=== PATIENT | female | born 1940 | race Caucasian/White ===

== ENCOUNTER 2018-09-01 00:42 | Inpatient (IN) ==
[2018-09-01] MEDS ORDERED: Acetaminophen 325 MG TABLET PO ONE (01:22)
--- NOTE | 2018-09-01 02:04 | Emergency Department Note ---
Disposition Clinical Impression: Femoral distal fracture Qualifiers: Encounter type: initial encounter Fracture type: closed Fracture morphology: unspecified fracture morphology Laterality: left Qualified Code(s): S72.402A - Unspecified fracture of lower end of left femur, initial encounter for closed fracture Fall Qualifiers: Encounter type: initial encounter Qualified Code(s): W19.XXXA - Unspecified fall, initial encounter Disposition: Admitted As Inpatient Condition: Undetermined Referrals: Deja Nettles EXECUTIVE DIRECTOR [employer] [Primary Care Provider] - Fall HPI - General Chief Complaint: ED Fall Stated Complaint: fall left leg pain Time Seen by Provider: 09/01/18 01:17 Source: patient, EMS Mode of arrival: EMS Limitations: no limitations Nursing Notes Reviewed: Yes Vital Signs Reviewed: Yes - History of Present Illness HPI Narrative: 78-year-old female presents emergency department for evaluation of left lower extremity pain after sustaining a mechanical fall just prior to arrival. Patient states history of bone cancer, she is currently on chemotherapeutic medications states she was ambulating in her foot caught on a rug, she fell landing on her left side. She complains of pain mostly in her left knee but she does have pain proximally and distally as well. She denies numbness, tingling, paresthesia. She states for range of motion at her baseline (which includes decreased strength and range of motion to this extremity). She denies hitting her head, she denies loss of consciousness. She states she is on a blood thinner Prodaxa due to blood clots in her left lower exterminate previously. She states she has had surgery and bone plates inserted into this leg. 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 From: standing Fall Witnessed: no Place Fall Occurred: home Loss of Consciousness: none Prolonged Down Time?: no Symptoms Prior to Fall: none Context: tripped/slipped Location of injury: other Severity: moderate Quality: crushing Associated symptoms (after fall): Reports: denies - Related Data Home Medications Medication Instructions Recorded Confirmed Carvedilol [Coreg] 6.25 mg PO BIDWM 02/26/15 08/23/18 Multivitamin [Multi-Day Vitamins] 1 each PO DAILY 02/26/15 08/23/18 Aspirin [Lo-Dose Aspirin EC] 81 mg PO DAILY 12/27/17 08/23/18 Losartan [Cozaar] 50 mg PO DAILY 01/06/18 08/23/18 Previous Rx's Medication Instructions Recorded Dabigatran Etexilate Mesylate 110 mg PO BID #180 capsule 05/16/18 [Pradaxa] Walker - Rollator [ROLLATOR] 1 each .ROUTE AD #1 each 05/31/18 Cyanocobalamin (Vitamin B-12) 1,000 mcg SL DAILY #30 tablet 06/29/18 [Vitamin B12] Cyanocobalamin (B-12) [Vitamin B12] 1,000 mcg IM QMONTH #12 vial 07/26/18 Palbociclib [Ibrance] 100 mg PO DAILY #21 capsule 08/07/18 Allergies Allergy/AdvReac Type Severity Reaction Status Date / Time Penicillins [PCN] Allergy Swelling Verified 08/23/18 13:00 of Lip/Tongue/Throat Sulfa (Sulfonamide Allergy Rash Verified 08/23/18 13:00 Antibiotics) All systems ED: reviewed and negative except as stated. 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 - Social History Smoking Status: Never smoker Alcohol use: Reports: none Drug use: Reports: none Physical Exam - General Limitations: no limitations General appearance: alert, in no apparent distress - Head Head exam: atraumatic, normocephalic, normal inspection - Eye Eye exam: Present: normal appearance - ENT ENT exam: mucous membranes moist - Neck Neck exam: Present: normal inspection, full ROM, trachea midline - Chest Chest inspection: Present: normal inspection, symmetric chest wall rise - Cardiovascular Cardiovascular exam: Present: regular rate, normal rhythm, normal heart sounds - Abdominal Exam Abdominal exam: Present: soft, Non-Tender. Absent: tenderness, distention, guarding, rebound, rigidity - Expanded Lower Extremity Exam Hip/Pelvis exam: Present: normal inspection. Absent: tenderness, swelling Upper leg exam: Present: normal inspection, tenderness (distal with palpation) Knee exam: Present: normal inspection, tenderness (with palpation) Lower leg exam: Present: normal inspection, tenderness (proximal with palpation) Ankle exam: Present: normal inspection, full ROM Foot/toe exam: Present: normal inspection, full ROM Neurovascular/Tendon exam: Present: normal capillary refill, normal 2-point discrimination. Absent: pulse deficit, sensory deficit Gait: not tested/not observed - Back Exam Back exam: Present: normal inspection, full ROM. Absent: tenderness, vertebral tenderness - Neurological Exam Neurological exam: Present: alert, oriented X3 - Psychiatric Psychiatric exam: Present: normal affect, normal mood - Skin Skin exam: Present: warm, dry, intact, normal color Course Course Narrative: Well-developed female in no acute distress. Respirations are easy and even. Patient is neurovascularly intact to bilateral lower extremities. She does have pain with palpation from the mid femur down through the mid tibia and fibula, shows a full range of motioned her ankle, feet, toes. She does have some range of motion though she states at baseline she does not have much. Patient states at home she only takes Aleve for pain, she states she only arrest take one in the morning and she does not have any pain afterwards. X-rays completed of the ankle, knee, foot reveal a comminuted displaced fracture of the distal femur, patient was unable to tolerate a hip x-ray due to pain. She did not have any pain with palpation of the hip, the pain is strictly from her knee. She is asking to not have x-rays of her hip she did not hit their she states she came down on her knee. Patient will require an orthopedic consult, and she will be nonambulatory and unable to care for herself at home. Erica should to fit most from being admitted to the hospital, I did discuss this with patient he was agreeable. We will assist with pain management, plan to admit to the hospital for management and orthopedic consult, we will obtain basic labs, given IV paged the hospitalist. - Reevaluation(s) Reevaluation #1: Except by hospitalist for admission to the hospital. We will consult orthopedics to see patient during normal rounding. Tuesday agreeable plan of care. We will transfer at this time. Vital Signs Temperature 98.6 F 09/01/18 00:58 Pulse Rate 65 09/01/18 00:58 Respiratory Rate 18 09/01/18 00:58 Blood Pressure 148/65 09/01/18 00:58 O2 Sat by Pulse Oximetry 96 09/01/18 00:58 Temperature 97.4 F L 09/01/18 04:34 Pulse Rate 70 09/01/18 04:34 Respiratory Rate 12 09/01/18 04:34 Blood Pressure 108/96 09/01/18 04:34 O2 Sat by Pulse Oximetry 95 09/01/18 04:34 Oxygen Delivery Oxygen Delivery Room Air Fall - Lab Data Result diagrams: 09/01/18 03:05 09/01/18 03:05 Lab Results 09/01/18 09/01/18 Range/Units 03:05 03:05 WBC 2.0 L (4.3-11.1) K/mcL RBC 2.39 L (3.82-4.97) M/mcL Hgb 9.1 L (11.5-15.4) g/dL Hct 26.5 L (35.3-44.9) % MCV 110.9 H (83.0-100.0) fL MCH 38.1 H (28.0-33.3) pg MCHC 34.3 (31.6-35.5) g/dL RDW 13.2 (11.5-14.5) % Plt Count 80 L (140-400) K/mcL MPV 11.2 (9.4-12.4) fL Immature Gran % 0.5 (0-4) % Seg Neutrophils % 69.4 % Lymphocytes % 22.6 % Monocytes % 6.5 % Eosinophils % 0.5 % Basophils % 0.5 % Neutrophils # 1.4 L (1.6-8.9) K/mcL Lymphocytes # 0.5 L (0.6-4.6) K/mcL Monocytes # 0.1 (0.0-1.3) K/mcL Eosinophils # 0.0 (0.0-0.6) K/mcL Basophils # 0.0 (0.0-0.2) K/mcL Platelet Estimate Decreased L (Normal) Sodium 139 (136-145) mEq/L Potassium 3.5 (3.5-5.1) mEq/L Chloride 105 (98-107) mEq/L Carbon Dioxide 25 (23-29) mEq/L BUN 18 (8-23) mg/dL Creatinine 0.70 (0.60-1.20) mg/dL Est GFR ( Amer) > 60 (> 60) Est GFR (Non-Af Amer) > 60 (> 60) BUN/Creatinine Ratio 26 (6-26) Glucose 112 H (70-105) mg/dL Calculated Osmolality 291 (280-300) Calcium 8.8 (8.6-10.3) mg/dL
[2018-09-01] MEDS ORDERED: *HR* OxyCODONE Immed Rel 5 MG TABLET PO ONE (02:13)
--- NOTE | 2018-09-01 03:18 | Emergency Department Note ---
Disposition Clinical Impression: Femoral distal fracture Qualifiers: Encounter type: initial encounter Fracture type: closed Fracture morphology: unspecified fracture morphology Laterality: left Qualified Code(s): S72.402A - Unspecified fracture of lower end of left femur, initial encounter for closed fracture Fall Qualifiers: Encounter type: initial encounter Qualified Code(s): W19.XXXA - Unspecified fall, initial encounter Disposition: Admitted As Inpatient Condition: Fair General Adult HPI - General Chief complaint: ED Fall Stated complaint: fall left leg pain Time Seen by Provider: 09/01/18 01:17 Source: patient, EMS Mode of arrival: EMS Limitations: no limitations Nursing Notes Reviewed: Yes Vital Signs Reviewed: Yes - History of Present Illness Pain Scale: 7 - Related Data Home Medications Medication Instructions Recorded Confirmed Carvedilol [Coreg] 6.25 mg PO BIDWM 02/26/15 09/01/18 Multivitamin [Multi-Day Vitamins] 1 each PO DAILY 02/26/15 09/01/18 Aspirin [Lo-Dose Aspirin EC] 81 mg PO DAILY 12/27/17 09/01/18 Losartan [Cozaar] 50 mg PO DAILY 01/06/18 09/01/18 Previous Rx's Medication Instructions Recorded Dabigatran Etexilate Mesylate 110 mg PO BID #180 capsule 05/16/18 [Pradaxa] Walker - Rollator [ROLLATOR] 1 each .ROUTE AD #1 each 05/31/18 Cyanocobalamin (Vitamin B-12) 1,000 mcg SL DAILY #30 tablet 06/29/18 [Vitamin B12] Cyanocobalamin (B-12) [Vitamin B12] 1,000 mcg IM QMONTH #12 vial 07/26/18 Palbociclib [Ibrance] 100 mg PO DAILY #21 capsule 08/07/18 Allergies Allergy/AdvReac Type Severity Reaction Status Date / Time Penicillins [PCN] Allergy Swelling Verified 08/23/18 13:00 of Lip/Tongue/Throat Sulfa (Sulfonamide Allergy Rash Verified 08/23/18 13:00 Antibiotics) Past Medical History - Past Medical History Medical history: Reports: cancer, hyperlipidemia, hypertension, other Surgical history: Reports: appendectomy, breast surgery, cholecystectomy Psychiatric history: Reports: no psych history 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 history - Social History Smoking Status: Never smoker Smokeless Tobacco Status: No Alcohol use: Reports: none Drug use: Reports: none Physical Exam - General Limitations: no limitations General appearance: alert, in no apparent distress Course Vital Signs Temperature 98.6 F 09/01/18 00:58 Pulse Rate 65 09/01/18 00:58 Respiratory Rate 18 09/01/18 00:58 Blood Pressure 148/65 09/01/18 00:58 O2 Sat by Pulse Oximetry 96 09/01/18 00:58 Temperature 98.1 F 09/01/18 05:26 Pulse Rate 69 09/01/18 05:26 Respiratory Rate 16 09/01/18 05:26 Blood Pressure 152/73 09/01/18 05:26 O2 Sat by Pulse Oximetry 92 09/01/18 06:12 Oxygen Delivery Oxygen Delivery Room Air Medical Decision Making - Lab Data Lab results reviewed: Yes I reviewed the patient's lab results. Result diagrams: 09/01/18 03:05 09/01/18 03:05 Lab Results 09/01/18 09/01/18 09/01/18 Range/Units 03:05 03:05 03:09 WBC 2.0 L (4.3-11.1) K/mcL RBC 2.39 L (3.82-4.97) M/mcL Hgb 9.1 L (11.5-15.4) g/dL Hct 26.5 L (35.3-44.9) % MCV 110.9 H (83.0-100.0) fL MCH 38.1 H (28.0-33.3) pg MCHC 34.3 (31.6-35.5) g/dL RDW 13.2 (11.5-14.5) % Plt Count 80 L (140-400) K/mcL MPV 11.2 (9.4-12.4) fL Immature Gran % 0.5 (0-4) % Seg Neutrophils % 69.4 % Lymphocytes % 22.6 % Monocytes % 6.5 % Eosinophils % 0.5 % Basophils % 0.5 % Neutrophils # 1.4 L (1.6-8.9) K/mcL Lymphocytes # 0.5 L (0.6-4.6) K/mcL Monocytes # 0.1 (0.0-1.3) K/mcL Eosinophils # 0.0 (0.0-0.6) K/mcL Basophils # 0.0 (0.0-0.2) K/mcL Platelet Estimate Decreased L (Normal) PT 12.6 H (9.4-12.1) Seconds INR 1.1 APTT 134.3 H* (26.0-36.0) Seconds Heparin Anti-Xa, Unfract 0.50 (0.30-0.70) IU/mL Sodium 139 (136-145) mEq/L Potassium 3.5 (3.5-5.1) mEq/L Chloride 105 (98-107) mEq/L Carbon Dioxide 25 (23-29) mEq/L BUN 18 (8-23) mg/dL Creatinine 0.70 (0.60-1.20) mg/dL Est GFR ( Amer) > 60 (> 60) Est GFR (Non-Af Amer) > 60 (> 60) BUN/Creatinine Ratio 26 (6-26) Glucose 112 H (70-105) mg/dL Calculated Osmolality 291 (280-300) Calcium 8.8 (8.6-10.3) mg/dL - Radiology Data Radiology results reviewed: Yes I reviewed the patient's radiology results. Ankle X-Ray 09/01/18 01:21 IMPRESSION: Diffuse soft tissue swelling. No definite acute fracture is seen. D/ / Maya Starr MD / Maya Starr MD Interpreting Provider: Maya Starr MD Foot X-Ray 09/01/18 01:21 IMPRESSION: Bones are demineralized. No acute osseous abnormality. Diffuse soft tissue swelling. D/ / Maya Starr MD / Maya Starr MD Interpreting Provider: Maya Starr MD Knee X-Ray 09/01/18 01:21 IMPRESSION: Comminuted displaced fracture involving the left distal femoral metadiaphysis with adjacent soft tissue swelling. D/ / Maya Starr MD / Maya Starr MD Interpreting Provider: Maya Starr MD Attestation Statement - Attestation Attestation: I, Ananth Sarmiento MD, personally evaluated this patient and discussed their management with the midlevel provicer, PAC/NETWORK CABLER. I reviewed the midlevel provider's note and agree with the documented findings, medical decision making, and plan of care. 78-year-old female presents to the emergency department by EMS with a complaint that she tripped on her rug and fell landing on her left knee and her left hand. She complains of severe pain just above the left knee. She denies hitting her head. No other pain or injury. She did not get dizzy or pass out. On examination patient is a well-developed obese elderly female in no acute distress. She is alert and oriented 3. There is no cyanosis or diaphoresis. Breath sounds are clear and equal bilaterally. Heart regular rate and rhythm. Abdomen soft and nontender with normal bowel sounds. There is swelling and tenderness of the distal left thigh. Range of motion not tested. Neurovascular function intact distally. X-ray shows a comminuted fracture of the distal left femur. Labs reviewed. The hospitalist, Dr. Shah, was consulted and accepted admission of the patient.
[2018-09-01 03:20] LABS: Basophils % 0.5 %; Mean Corpuscular Hemoglobin 38.1 pg (28.0-33.3)
[2018-09-01 03:22] LABS: Eosinophils % 0.5 %; Hematocrit 26.5 % (35.3-44.9); Hemoglobin 9.1 g/dL (11.5-15.4); Immature Granulocytes % 0.5 % (0-4); Lymphocytes # 0.5 K/mcL (0.6-4.6); Lymphocytes % 22.6 %; Mean Corpuscular HGB Conc 34.3 g/dL (31.6-35.5); Mean Corpuscular Volume 110.9 fL (83.0-100.0); Mean Platelet Volume 11.2 fL (9.4-12.4); Monocytes # 0.1 K/mcL (0.0-1.3); Monocytes % 6.5 %; Neutrophils # 1.4 K/mcL (1.6-8.9); Red Blood Count 2.39 M/mcL (3.82-4.97); Red Cell Distribution Width 13.2 % (11.5-14.5); Segmented Neutrophils % 69.4 %
[2018-09-01 03:23] LABS: Platelet Count 80 K/mcL (140-400)
[2018-09-01 03:38] LABS: BUN/Creatinine Ratio 26 (6-26); Blood Urea Nitrogen 18 mg/dL (8-23); Calcium 8.8 mg/dL (8.6-10.3); Carbon Dioxide 25 mEq/L (23-29); Chloride 105 mEq/L (98-107); Glucose 112 mg/dL (70-105); Osmolality,Calculated 291 (280-300); Potassium 3.5 mEq/L (3.5-5.1); Sodium 139 mEq/L (136-145); eGFR For Non-African Americans > 60 (> 60)
[2018-09-01 03:53] LABS: Platelet Estimate Decreased (Normal)
--- NOTE | 2018-09-01 04:30 | Internal Med History&Physical ---
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 He came into the emergency room for evaluation of left lower extremity pain that commenced after sustaining a mechanical fall prior to arrival describing it as her foot being caught on a rug than landing on her left side. She complained of pain mostly her left knee but also approximately and distally to this. She denied any numbness, tingling or paresthesias. Her range of motion was rep ortedly a baseline although it is decreased. No head trauma or loss of consciousness reported. She did state that she takes an anticoagulant due to blood clots in her left leg previously and has had surgery and bone plates inserted in the past. On exam she was found to be neurovascularly intact but in notable pain on palpation from the mid femur down to the mid tibia/fibula x-ray done revealed comminuted displaced fracture of the distal femur. She was given analgesics and is admitted for further care. Past Med Surg Social Fam HX - Past Medical History Medical history: cancer, hyperlipidemia, hypertension, other Additional medical history: DVT Psychiatric history: no psych history - Past Surgical History Surgical History: appendectomy, breast surgery, cholecystectomy Additional surgical history: 11/01/17 cervical 4-5 discectomy. anterior cervical w/fusion with cervical six corpectomy. lumpectomy left breast - Social History Smoking Status: Never smoker Smokeless Tobacco Status: No Alcohol use: none Drug use: none Internal Medicine - H&P: Meds Carvedilol [Coreg] 6.25 mg PO BIDWM 02/26/15 [History] Multivitamin [Multi-Day Vitamins] 1 each PO DAILY 02/26/15 [History] Aspirin [Lo-Dose Aspirin EC] 81 mg PO DAILY 12/27/17 [History] Losartan [Cozaar] 50 mg PO DAILY 01/06/18 [History] Dabigatran Etexilate Mesylate [Pradaxa] 110 mg PO BID #180 capsule 05/16/18 [Rx] Walker - Rollator [ROLLATOR] 1 each .ROUTE AD #1 each 05/31/18 [Rx] Cyanocobalamin (Vitamin B-12) [Vitamin B12] 1,000 mcg SL DAILY #30 tablet 06/29/18 [Rx] Cyanocobalamin (B-12) [Vitamin B12] 1,000 mcg IM QMONTH #12 vial 07/26/18 [Rx] Palbociclib [Ibrance] 100 mg PO DAILY #21 capsule 08/07/18 [Rx] Allergy/AdvReac Type Severity Reaction Status Date / Time Penicillins [PCN] Allergy Swelling Verified 08/23/18 13:00 of Lip/Tongue/Throat Sulfa (Sulfonamide Allergy Rash Verified 08/23/18 13:00 Antibiotics) All Systems PM: A 10-system review of systems was performed and is negative for pertinent findings except as documented above in the HPI. Family history reviewed and found non-contributory. - Constitutional Vitals: Temp Pulse Resp BP Pulse Ox 98.6 F 65 18 148/65 96 09/01/18 00:58 09/01/18 00:58 09/01/18 00:58 09/01/18 00:58 09/01/18 00:58 Exam: Vitals: Reviewed General: All developed white female lying comfortably in bed in no acute distress. Involuntary head shaking movements. Skin: Pale, warm and supple. HEENT: Moist mucous membranes. + conjunctivae pallor. Neck: Chemo port noted in right jugular. Chest: Normal thoracic expansion. Normal breath sounds. Clear to auscultation. Heart: Normal S1 & S2; rhythmic. No rubs or murmurs. Abdomen: Non-distended, soft and non-tender to palpation. No peritoneal reaction. Extremities: Mildly edematous. Left leg external rotation and shortening noted. Left suprapatellar ecchymosis with swelling and pain to touch. Warm distal extremities with palpable pulses. Able to wiggle her foot. Neurological: Awake, alert and oriented to person, place and time. No focal deficits. Psych: Affect appropriate. Internal Med - H&P Results - Labs CBC & Chem 7: 09/01/18 03:05 09/01/18 03:05 Labs: Short CBC 09/01/18 Range/Units 03:05 WBC 2.0 L (4.3-11.1) K/mcL Hgb 9.1 L (11.5-15.4) g/dL Hct 26.5 L (35.3-44.9) % Plt Count 80 L (140-400) K/mcL Neutrophils # 1.4 L (1.6-8.9) K/mcL BMP 09/01/18 03:05 Sodium 139 Potassium 3.5 Chloride 105 Carbon Dioxide 25 BUN 18 Creatinine 0.70 Glucose 112 H Calcium 8.8 - Impressions ITS Impressions Ankle X-Ray 09/01/18 01:21 IMPRESSION: Diffuse soft tissue swelling. No definite acute fracture is seen. D/ / Maya Starr MD / Maya Starr MD Interpreting Provider: Maya Starr MD Foot X-Ray 09/01/18 01:21 IMPRESSION: Bones are demineralized. No acute osseous abnormality. Diffuse soft tissue swelling. D/ / Maya Starr MD / Maya Starr MD Interpreting Provider: Maya Starr MD Knee X-Ray 09/01/18 01:21 IMPRESSION: Comminuted displaced fracture involving the left distal femoral metadiaphysis with adjacent soft tissue swelling. D/ / Maya Starr MD / Maya Starr MD Interpreting Provider: Maya Starr MD - Assessment and Plan (1) Closed fracture of left distal femur Current Visit: Yes Status: Acute Assessment and plan: Appears to be a pathologic fracture based on her history of severely debilitated bones from metastatic disease. Will consult orthopedics for evaluation. In the interim will keep NPO, obtain EKG and echo (since she has been on chemotherapeutic agents) for assessment . She has already undergone previous orthopedic surgeries without complications. She is self-ambulatory exceeding 4 METs capacity. No history of ischemic heart disease, congestive heart failure, cerebrovascular disease, preoperative insulin requirement or preoperative kidney disease placing her RCRI score at 0, class I risk for an intermediate risk surgical procedure. Qualifiers: Encounter type: initial encounter Fracture morphology: unspecified fracture morphology Qualified Code(s): S72.402A - Unspecified fracture of lower end of left femur, initial encounter for closed fracture (2) Breast cancer metastasized to bone Current Visit: Yes Status: Acute Assessment and plan: Will continue to follow with medical and radiation oncology as an outpatient. Qualifiers: Laterality: left Qualified Code(s): C50.912 - Malignant neoplasm of unspecified site of left female breast; C79.51 - Secondary malignant neoplasm of bone (3) Pancytopenia due to antineoplastic chemotherapy Current Visit: Yes Status: Acute Assessment and plan: Will continue to monitor trend and observe for bleeding. Seems stable and at baseline for now however. 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 Will keep on SubQ heparin in the interim for prophylaxis. Qualifiers: Chronicity: chronic Qualified Code(s): I82.532 - Chronic embolism and thrombosis of left popliteal vein - Time Spent With Patient Total time spent is greater than 50% in coordination of care (as documented) at patient's floor/unit and/or counseling patient: Greater than 35 minutes
[2018-09-01] MEDS ORDERED: Naloxone 0.4 MG/ML INJ IVP PRN (04:35)
[2018-09-01 05:21] LABS: Heparin anti-factor XA UFH 0.5 IU/mL (0.30-0.70); INR 1.1; Prothrombin Time 12.6 Seconds (9.4-12.1)
[2018-09-01 05:46] LABS: Activated Partial Thrombo Time 134.3 Seconds (26.0-36.0)
[2018-09-01] MEDS: OXYCODONE Oral CONC 10 MG/0.5 ML ORAL.SYG SL PRN ×3 (05:54→23:27)
[2018-09-01] MEDS: Ketorolac 30 MG/ML VIAL IVP PRN (09:35)
[2018-09-01] MEDS: Multivit/Ca/Min/Fe/FA 1 TAB TABLET PO SCH (09:36)
[2018-09-01] MEDS: Aspirin Enteric Coated 81 MG Tablet PO SCH (09:36)
--- NOTE | 2018-09-01 11:15 | Orthopedic Consult Note ---
Date of Encounter: 09/02/18 Time of Encounter: 11:15 Assessment and Plan (1) Femoral distal fracture Current Visit: Yes Status: Acute I did have a long discussion with the patient regarding the diagnosis. She does have a comminuted distal femur fracture below a long stem total hip arthroplasty. She does have a history of breast cancer with a lytic lesion in the proximal tibia. There is suspicion of possible pathologic fracture by the radiologist however I do not see any lytic lesion in the femur. She was mostly unassisted ambulator before this fall. I did discuss the case with my partner Dr. Beach regarding definitive management which I anticipate to be open reduction and internal fixation to stabilize left distal femur to provide pain control. He is currently out of town but will be back on Tuesday. Patient wishes to remain at [facility] for definitive care. I have reviewed each of the pertinent components of this chart and any other per tinent medical component(s) including but not limited to pertinent application of the chief complaint, history of present illness, current medication, medical history, allergies, family history, medical history, surgical history, social history, review of systems, vital signs, and any other portion of the pertinent patient medical record directly or indirectly involved with this patient care that is pertinent based on my medical decision process. PETERSON Acevedo Qualifiers: Encounter type: initial encounter Fracture type: closed Fracture morphology: unspecified fracture morphology Laterality: left Qualified Code(s): S72.402A - Unspecified fracture of lower end of left femur, initial encounter for closed fracture History of Present Illness HPI: Ms. Sinha is a 78 year old female with a known history of metastatic breast carcinoma. She is an unassisted ambulator mostly but does use a cane and walker from time to time. She has a history of a long stem left total hip arthroplasty by Dr. Beach a few years ago. She sustained a fall that resulted in a distal femur fracture and was subsequently admitted to the hospitalist. A consult was placed orthopedics to assist in the evaluation and management of the patient. She complains of isolated sharp and achy pain localized to left distal femur region. This is worse with movement and use the left lower extremity and better with rest. She denies any headaches, neck pain, chest pain, abdominal pain, no lateral upper extremity pain, and right lower extremity pain. She denies any numbness, tingling, or any other associated signs or symptoms or modifying fa ctors. Past Med Surg Social Fam HX - Past Medical History Medical history: cancer, hyperlipidemia, hypertension, other Additional medical history: DVT Psychiatric history: no psych history - Past Surgical History Surgical History: appendectomy, breast surgery, cholecystectomy Additional surgical history: 11/01/17 cervical 4-5 discectomy. anterior cervical w/fusion with cervical six corpectomy. lumpectomy left breast - Social History Smoking Status: Never smoker Smokeless Tobacco Status: No Alcohol use: none Drug use: none Medications and Allergies Carvedilol [Coreg] 6.25 mg PO BIDWM 02/26/15 [History] Multivitamin [Multi-Day Vitamins] 1 each PO DAILY 02/26/15 [History] Aspirin [Lo-Dose Aspirin EC] 81 mg PO DAILY 12/27/17 [History] Losartan [Cozaar] 50 mg PO DAILY 01/06/18 [History] Dabigatran Etexilate Mesylate [Pradaxa] 110 mg PO BID #180 capsule 05/16/18 [Rx] Walker - Rollator [ROLLATOR] 1 each .ROUTE AD #1 each 05/31/18 [Rx] Cyanocobalamin (Vitamin B-12) [Vitamin B12] 1,000 mcg SL DAILY #30 tablet 06/29/18 [Rx] Cyanocobalamin (B-12) [Vitamin B12] 1,000 mcg IM QMONTH #12 vial 07/26/18 [Rx] Palbociclib [Ibrance] 100 mg PO DAILY #21 capsule 08/07/18 [Rx] Allergy/AdvReac Type Severity Reaction Status Date / Time Penicillins [PCN] Allergy Swelling Verified 08/23/18 13:00 of Lip/Tongue/Throat Sulfa (Sulfonamide Allergy Rash Verified 08/23/18 13:00 Antibiotics) All Systems Reviewed: Constitutional -The patient denies any fevers, chills, or feelings of illness Neurologic -The patient denies any numbness, tingling, or burning pains Physical Exam - Constitutional Vitals: Temp Pulse Resp BP Pulse Ox 98.3 F 70 14 101/60 94 09/01/18 07:13 09/01/18 07:13 09/01/18 07:13 09/01/18 07:13 09/01/18 07:13 Constitutional -Vitals reviewed -The patient is well developed and well nourished. -Mood is pleasant. -The patient is well groomed. Psychiatric -The patient is fully alert and oriented x 3. Respiratory: -Respiratory effort normal Abdomen: -Soft abdomen -Non tender -Non distended: Left upper extremity: -No deformities. The overlying skin is intact. No obvious signs of acute trauma. -No tenderness to palpation throughout. -No significant pain with passive motion of the shoulder, elbow, wrist, and fingers within the limits of the bed. -Able to make an "OK" sign, cross the index and long fingers, and extend the thumb. -Sensation grossly intact to light touch throughout the median, radial, and ulnar distributions. -Radial pulse is present; Fingers have good capillary refill. Right upper extremity: -No deformities. The overlying skin is intact. No obvious signs of acute trauma. -No tenderness to palpation throughout. -No significant pain with passive motion of the shoulder, elbow, wrist, and fingers within the limits of the bed. -Able to make an "OK" sign, cross the index and long fingers, and extend the thumb. -Sensation grossly intact to light touch throughout the median, radial, and ulnar distributions. -Radial pulse is present; Fingers have good capillary refill. Left lower extremity: -Swelling noted to the left distal thigh region with tenderness diffusely about the distal femur region. I did not range the knee given her known injury. No tenderness about the hip. -Able to dorsiflex and plantarflex the ankle and toes. -Sensation is grossly intact to light touch throughout the sural, saphenous, superficial peroneal, and deep peroneal distributions. -Toes have good capillary refill. Right lower extremity: -No deformities. The overlying skin is intact. No obvious signs of acute trauma. -No tenderness to palpation throughout. -No pain with passive motion of the hip, knee, ankle, and toes within the limits of the bed. -No pain with axial loading of the thigh. -Able to dorsiflex and plantarflex the ankle and toes. -Sensation is grossly intact to light touch throughout the sural, saphenous, superficial peroneal, and deep peroneal distributions. -Toes have good capillary refill. Diagnostic Imaging: I did personally review and interpret x-rays of the left hip and knee as well as the CT scan of the knee were evaluated. Intact left hip implant. Comminuted distal femur fracture with what appears to be an intra-articular split between the condyles. There is a lytic lesion at the proximal tibia. Results - Labs Result Diagrams: 09/02/18 08:02 09/02/18 06:45 Labs: Abnormal lab results WBC 2.0 K/mcL (4.3-11.1) L 09/01/18 03:05 RBC 2.39 M/mcL (3.82-4.97) L 09/01/18 03:05 Hgb 9.1 g/dL (11.5-15.4) L 09/01/18 03:05 Hct 26.5 % (35.3-44.9) L 09/01/18 03:05 MCV 110.9 fL (83.0-100.0) H 09/01/18 03:05 MCH 38.1 pg (28.0-33.3) H 09/01/18 03:05 Plt Count 80 K/mcL (140-400) L 09/01/18 03:05 Neutrophils # 1.4 K/mcL (1.6-8.9) L 09/01/18 03:05 Lymphocytes # 0.5 K/mcL (0.6-4.6) L 09/01/18 03:05 Platelet Estimate Decreased (Normal) L 09/01/18 03:05 PT 12.6 Seconds (9.4-12.1) H 09/01/18 03:09 APTT 134.3 Seconds (26.0-36.0) H* 09/01/18 03:09 Glucose 112 mg/dL (70-105) H 09/01/18 03:05 H & H 09/01/18 Range/Units 03:05 Hgb 9.1 L (11.5-15.4) g/dL Hct 26.5 L (35.3-44.9) % All other labs normal. Consult Discharge Plan - Plan Referrals: Deja Nettles, BACK TENDER [Primary Care Provider] -
[2018-09-01] MEDS: *HR* Heparin 5,000 UNIT/ML VIAL SQ SCH ×3 (12:49→23:27)
--- NOTE | 2018-09-01 15:41 | Internal Med Progress Note ---
<Jose D Cartagena - Last Filed: 09/01/18 15:39> Hospitalist Progress Note - Encounter Date of Encounter: 09/01/18 Time of Encounter: 11:00 - Subjective Interval History: Spoke with Dr. Gruber this morning, patient's complicated fracture pattern require specific intervention normally offered by Dr. Beach who is out of town. The patient was consultation who stated that she would like to remain here to wait for Dr. Beach to perform the procedure as opposed to being transferred to a trauma center. I discussed that with the patient who confirmed that decision. The risks of postponing the procedure including pain, increased soft tissue damage, thrombotic event were all explained to the patient who stated that she understood. She complains of moderate left lower extremity pain this morning but otherwise has no acute complaints. - Exam Vitals: Temp Pulse Resp BP Pulse Ox 98.8 F 65 12 103/62 92 09/01/18 11:48 09/01/18 11:48 09/01/18 11:48 09/01/18 11:48 09/01/18 11:48 Exam: Vitals: Reviewed General: Well developed white female lying comfortably in bed in no acute distress. Skin: Pale, warm and supple. HEENT: Moist mucous membranes. + conjunctivae pallor. Neck: Chemo port noted in right jugular. Chest: Normal thoracic expansion. Normal breath sounds. Clear to auscultation. Heart: Normal S1 & S2; rhythmic. No rubs or murmurs. Abdomen: Non-distended, soft and non-tender to palpation. No peritoneal reaction. Extremities: Markedly edematous and ecchymotic left knee. There is observable physical deformity to the left distal femur proximal to the knee. Strength and range of motion around the knee joint were not tested however the patient was able to move her foot and wiggle her toes and confirmed intact sensation in the distal extremity. Neurological: Awake, alert and oriented to person, place and time. No focal deficits. Psych: Affect appropriate. - Assessment and Plan (1) Closed fracture of left distal femur Current Visit: Yes Status: Acute Assessment and Plan: Patient presented for left lower extremity pain after a mechanical fall Imaging revealed a severely comminuted distal left femur fracture She does have a history of pathologic fractures secondary to bony metastases from primary breast cancer Orthopedics was consulted who reported that Dr. Beach primarily handles complicated fractures of this nature and he is currently out of town This was discussed with the patient who decided she would like to remain here and wait for Dr. Beach, he has operated on her in the past The patient was determined to be hemodynamically and neurovascularly stable to postpone the procedure The patient reports over 4 Mets of functional ability prior to injury, EKG without acute dynamic changes, echocardiogram demonstrates preserved EF plan Scheduled oxycodone for pain control, subcutaneous heparin for DVT prophylaxis, home Dabigatran held due to bleeding risk Further recommendations per orthopedics, appreciate recommendations and consultation (2) Breast cancer metastasized to bone Current Visit: Yes Status: Acute Assessment and Plan: Will continue to follow with medical and radiation oncology as an outpatient. (3) Pancytopenia due to antineoplastic chemotherapy Current Visit: Yes Status: Acute Assessment and Plan: Will continue to monitor trend and observe for bleeding. Seems stable and at baseline for now however. (4) Deep vein thrombosis (DVT) of popliteal vein of left lower extremity Current Visit: Yes Status: Chronic Assessment and Plan: History of previous DVT, on Dabigatran at home Will hold current oral anticoagulant therapy in case surgery is planned. Will keep on SubQ heparin in the interim for prophylaxis. - Time Spent with Patient Total time spent is greater than 50% in coordination of care (as documented) at patient's floor/unit and/or counseling patient: Internal Medicine: Result - Labs CBC & Chem 7: 09/01/18 03:05 09/01/18 03:05 Labs: Short CBC 09/01/18 Range/Units 03:05 WBC 2.0 L (4.3-11.1) K/mcL Hgb 9.1 L (11.5-15.4) g/dL Hct 26.5 L (35.3-44.9) % Plt Count 80 L (140-400) K/mcL Neutrophils # 1.4 L (1.6-8.9) K/mcL BMP 09/01/18 03:05 Sodium 139 Potassium 3.5 Chloride 105 Carbon Dioxide 25 BUN 18 Creatinine 0.70 Glucose 112 H Calcium 8.8 - ABG Interpretation ABG results: PT/INR, D-dimer PT 12.6 Seconds (9.4-12.1) H 09/01/18 03:09 - Impressions Impressions Ankle X-Ray 09/01/18 01:21 IMPRESSION: Diffuse soft tissue swelling. No definite acute fracture is seen. D/ / Maya Starr MD / Maya Starr MD Interpreting Provider: Maya Starr MD Foot X-Ray 09/01/18 01:21 IMPRESSION: Bones are demineralized. No acute osseous abnormality. Diffuse soft tissue swelling. D/ / Maya Starr MD / Maya Starr MD Interpreting Provider: Maya Starr MD Knee X-Ray 09/01/18 01:21 IMPRESSION: Comminuted displaced fracture involving the left distal femoral metadiaphysis with adjacent soft tissue swelling. D/ / Maya Starr MD / Maya Starr MD Interpreting Provider: Maya Starr MD Echocardiogram 09/01/18 04:34 Impressions: LVEF 50%. Normal LV chamber size, wall thickness. Atypical septal motion consistent with bundle branch block. Mild global left ventricular systolic dysfunction. Mild left ventricular diastolic dysfunction. Normal right ventricular structure and function. Mild tricuspid regurgitation. No pulmonary hypertension. Left Ventricular Wall Motion: Rest Echo Findings All wall segments showed normal motion. Findings: Study Quality * Technically sub-optimal due to poor echocardiographic windows. ECG Findings * Sinus rhythm with BBB. Left Ventricle * LVEF 50%. * Normal LV chamber size, wall thickness. * Atypical septal motion consistent with bundle branch block. * Mild left ventricular diastolic dysfunction. Right Ventricle * Normal right ventricular structure and function. Left Atrium * Mildly dilated left atrium. Right Atrium * Normal right atrial size. Aortic Valve * Trileaflet aortic valve. * Mildly calcified aortic valve leaflets. * No aortic stenosis. * No aortic regurgitation. Mitral Valve * Mild mitral annular calcification * No mitral regurgitation. * No mitral stenosis. Tricuspid Valve * Normal tricuspid valve structure. * Mild tricuspid regurgitation. * No pulmonary hypertension. Pulmonic Valve * Normal pulmonic valve structure and function. * No pulmonic regurgitation. Aorta * Normally sized aortic root. Pericardium * The pericardium appears normal. IVC * The IVC is not well evaluated. Pulmonary Artery * Normal visualized portions of the main pulmonary artery. Femur X-Ray 09/01/18 10:08 IMPRESSION: 1. Comminuted, displaced fracture of the distal femoral metadiaphysis. 2. Inferior displacement of the patella with questionable superior patellar fracture. 3. Status post left hip arthroplasty. No hardware complication. D/ / 09/01/2018 12:51:50 Frida Ontiveros MD / delgado Interpreting Provider: Frida Ontiveros MD Knee CT 09/01/18 10:09 IMPRESSION: 1. Comminuted distal femur fracture with extension to the intercondylar notch. Likely a pathologic fracture with suspected underlying lytic metastasis. 2. There is a 16 mm lytic lesion in the medial tibial metaphysis concerning for metastatic disease. 3. Fractured 7 mm osteophyte from the superior pole of the patella. D/ / 09/01/2018 12:11:43 Ze Cantu MD / delgado Interpreting Provider: Ze Cantu MD Consult Discharge Plan - Plan Referrals: Deja Nettles, SCORER HELPER [Primary Care Provider] - <King Olivier - Last Filed: 09/01/18 17:56> Hospitalist Progress Note - Encounter Date of Encounter: 09/01/18 - Exam Vitals: Temp Pulse Resp BP Pulse Ox 98.3 F 73 16 88/56 90 09/01/18 16:00 09/01/18 16:00 09/01/18 16:00 09/01/18 16:00 09/01/18 16:00 - Assessment and Plan (1) Breast cancer metastasized to bone Current Visit: Yes Status: Acute (2) Pancytopenia due to antineoplastic chemotherapy Current Visit: Yes Status: Acute (3) Closed fracture of left distal femur Current Visit: Yes Status: Acute (4) Deep vein thrombosis (DVT) of popliteal vein of left lower extremity Current Visit: Yes Status: Chronic - Time Spent with Patient Total time spent is greater than 50% in coordination of care (as documented) at patient's floor/unit and/or counseling patient: Internal Medicine: Result - Labs CBC & Chem 7: 09/01/18 03:05 09/01/18 03:05 Labs: Short CBC 09/01/18 Range/Units 03:05 WBC 2.0 L (4.3-11.1) K/mcL Hgb 9.1 L (11.5-15.4) g/dL Hct 26.5 L (35.3-44.9) % Plt Count 80 L (140-400) K/mcL Neutrophils # 1.4 L (1.6-8.9) K/mcL BMP 09/01/18 03:05 Sodium 139 Potassium 3.5 Chloride 105 Carbon Dioxide 25 BUN 18 Creatinine 0.70 Glucose 112 H Calcium 8.8 - ABG Interpretation ABG results: PT/INR, D-dimer PT 12.6 Seconds (9.4-12.1) H 09/01/18 03:09 - Impressions Impressions Ankle X-Ray 09/01/18 01:21 IMPRESSION: Diffuse soft tissue swelling. No definite acute fracture is seen. D/ / Maya Starr MD / Maya Starr MD Interpreting Provider: Maya Starr MD Foot X-Ray 09/01/18 01:21 IMPRESSION: Bones are demineralized. No acute osseous abnormality. Diffuse soft tissue swelling. D/ / Maya Starr MD / Maya Starr MD Interpreting Provider: Maya Starr MD Knee X-Ray 09/01/18 01:21 IMPRESSION: Comminuted displaced fracture involving the left distal femoral metadiaphysis with adjacent soft tissue swelling. D/ / Maya Starr MD / Maya Starr MD Interpreting Provider: Maya Starr MD Echocardiogram 09/01/18 04:34 Impressions: LVEF 50%. Normal LV chamber size, wall thickness. Atypical septal motion consistent with bundle branch block. Mild global left ventricular systolic dysfunction. Mild left ventricular diastolic dysfunction. Normal right ventricular structure and function. Mild tricuspid regurgitation. No pulmonary hypertension. Left Ventricular Wall Motion: Rest Echo Findings All wall segments showed normal motion. Findings: Study Quality * Technically sub-optimal due to poor echocardiographic windows. ECG Findings * Sinus rhythm with BBB. Left Ventricle * LVEF 50%. * Normal LV chamber size, wall thickness. * Atypical septal motion consistent with bundle branch block. * Mild left ventricular diastolic dysfunction. Right Ventricle * Normal right ventricular structure and function. Left Atrium * Mildly dilated left atrium. Right Atrium * Normal right atrial size. Aortic Valve * Trileaflet aortic valve. * Mildly calcified aortic valve leaflets. * No aortic stenosis. * No aortic regurgitation. Mitral Valve * Mild mitral annular calcification * No mitral regurgitation. * No mitral stenosis. Tricuspid Valve * Normal tricuspid valve structure. * Mild tricuspid regurgitation. * No pulmonary hypertension. Pulmonic Valve * Normal pulmonic valve structure and function. * No pulmonic regurgitation. Aorta * Normally sized aortic root. Pericardium * The pericardium appears normal. IVC * The IVC is not well evaluated. Pulmonary Artery * Normal visualized portions of the main pulmonary artery. Femur X-Ray 09/01/18 10:08 IMPRESSION: 1. Comminuted, displaced fracture of the distal femoral metadiaphysis. 2. Inferior displacement of the patella with questionable superior patellar fracture. 3. Status post left hip arthroplasty. No hardware complication. D/ / 09/01/2018 12:51:50 Frida Ontiveros MD / delgado Interpreting Provider: Frida Ontiveros MD Knee CT 09/01/18 10:09 IMPRESSION: 1. Comminuted distal femur fracture with extension to the intercondylar notch. Likely a pathologic fracture with suspected underlying lytic metastasis. 2. There is a 16 mm lytic lesion in the medial tibial metaphysis concerning for metastatic disease. 3. Fractured 7 mm osteophyte from the superior pole of the patella. D/ / 09/01/2018 12:11:43 Ze Cantu MD / delgado Interpreting Provider: Ze Cantu MD - Attending Attestation I examined this patient and my medical decision-making was reviewed with the Resident Physician. I agree with the documented findings, disposition and tr eatment plan as described except to the extent set forth below. <Jose D Cartagena - Last Filed: 09/01/18 15:39> (1) Closed fracture of left distal femur Qualifiers: Encounter type: initial encounter Fracture morphology: unspecified fracture morphology Qualified Code(s): S72.402A - Unspecified fracture of lower end of left femur, initial encounter for closed fracture (2) Breast cancer metastasized to bone Qualifiers: Laterality: left Qualified Code(s): C50.912 - Malignant neoplasm of unspecified site of left female breast; C79.51 - Secondary malignant neoplasm of bone (4) Deep vein thrombosis (DVT) of popliteal vein of left lower extremity Qualifiers: Chronicity: chronic Qualified Code(s): I82.532 - Chronic embolism and thrombosis of left popliteal vein <King Olivier - Last Filed: 09/01/18 17:56> (1) Breast cancer metastasized to bone Qualifiers: Laterality: left Qualified Code(s): C50.912 - Malignant neoplasm of unspecified site of left female breast; C79.51 - Secondary malignant neoplasm of bone (3) Closed fracture of left distal femur Qualifiers: Encounter type: initial encounter Fracture morphology: unspecified fracture morphology Qualified Code(s): S72.402A - Unspecified fracture of lower end of left femur, initial encounter for closed fracture (4) Deep vein thrombosis (DVT) of popliteal vein of left lower extremity Qualifiers: Chronicity: chronic Qualified Code(s): I82.532 - Chronic embolism and th rombosis of left popliteal vein
[2018-09-01] MEDS ORDERED: 0.9 % Sodium Chloride 500 ML IVC ONE (16:05)
--- NOTE | 2018-09-02 03:33 | Electrocardiograph Report ---
[address] [place] [address] Test Date: 2018-09-01 Pat Name: Monisha Sinha Department: 114 Room: [facility] Gender: F Pill Packer: KHUSHI : [id number] Requested By: Fabiano Shah Order Number: [id number] Reading MD: Bertrand Chung Measurements Intervals [place] Rate: 69 P: -1 ID: [id number] QRS: -53 QRSD: 117 T: 18 QT: 417 QTc: 437 Interpretive Statements SINUS RHYTHM MARKED LEFT AXIS DEVIATION LOW QRS VOLTAGE IN PRECORDIAL LEADS ANTERIOR MYOCARDIAL INFARCTION, PROBABLY OLD INFERIOR MYOCARDIAL INFAARCTION, PROBABLY OLD Electronically Signed On 09-02-2018 3:31:42 EDT by Bertrand Chung
[2018-09-02 07:20] LABS: BUN/Creatinine Ratio 27 (6-26); Blood Urea Nitrogen 22 mg/dL (8-23); Calcium 8.2 mg/dL (8.6-10.3); Carbon Dioxide 27 mEq/L (23-29); Chloride 104 mEq/L (98-107); Glucose 106 mg/dL (70-105); Osmolality,Calculated 288 (280-300); Potassium 3.8 mEq/L (3.5-5.1); Sodium 137 mEq/L (136-145); eGFR For Non-African Americans > 60 (> 60)
[2018-09-02] MEDS: OXYCODONE Oral CONC 10 MG/0.5 ML ORAL.SYG SL PRN ×2 (07:39→13:23)
--- NOTE | 2018-09-02 08:26 | Internal Med Progress Note ---
Hospitalist Progress Note - Encounter Date of Encounter: 09/02/18 Time of Encounter: 09:00 - Subjective Interval History: No complaints, states pain is controlled. - Exam Vitals: Temp Pulse Resp BP Pulse Ox 99.4 F 74 16 128/68 92 09/02/18 07:16 09/02/18 07:16 09/02/18 07:16 09/02/18 07:16 09/02/18 07:16 Exam: Vitals: Reviewed General: Well developed white female lying comfortably in bed in no acute distress. Skin: Pale, warm and supple. HEENT: Moist mucous membranes. + conjunctivae pallor. Neck: Chemo port noted in right jugular. Chest: Normal thoracic expansion. Normal breath sounds. Clear to auscultation. Heart: Normal S1 & S2; rhythmic. No rubs or murmurs. Abdomen: Non-distended, soft and non-tender to palpation. No peritoneal reaction. Extremities: Markedly edematous and ecchymotic left knee. There is observable physical deformity to the left distal femur proximal to the knee. Strength and range of motion around the knee joint were not tested however the patient was able to move her foot and wiggle her toes and confirmed intact sensation in the distal extremity. Neurological: Awake, alert and oriented to person, place and time. No focal deficits. Psych: Affect appropriate. - Assessment and Plan (1) Closed fracture of left distal femur Current Visit: Yes Status: Acute Assessment and Plan: Patient presented for left lower extremity pain after a mechanical fall Imaging revealed a severely comminuted distal left femur fracture She does have a history of pathologic fractures secondary to bony metastases from primary breast cancer Orthopedics was consulted who reported that Dr. Beach primarily handles complicated fractures of this nature and he is currently out of town This was discussed with the patient who decided she would like to remain here and wait for Dr. Beach, he has operated on her in the past The patient was determined to be hemodynamically and neurovascularly stable to postpone the procedure The patient reports over 4 Mets of functional ability prior to injury, EKG without acute dynamic changes, echocardiogram demonstrates preserved EF plan Scheduled oxycodone for pain control, subcutaneous heparin for DVT prophylaxis, home Dabigatran held due to bleeding risk Surgery in 2 days (2) Breast cancer metastasized to bone Current Visit: Yes Status: Acute Assessment and Plan: Will continue to follow with medical and radiation oncology as an outpatient. (3) Pancytopenia due to antineoplastic chemotherapy Current Visit: Yes Status: Acute Assessment and Plan: Will continue to monitor trend and observe for bleeding. Seems stable and at baseline for now however. CBC for today is pending. (4) Deep vein thrombosis (DVT) of popliteal vein of left lower extremity Current Visit: Yes Status: Chronic Assessment and Plan: History of previous DVT, on Dabigatran at home Will hold current oral anticoagulant therapy in case surgery is planned. Will keep on SubQ heparin in the interim for prophylaxis. - Time Spent with Patient Total time spent is greater than 50% in coordination of care (as documented) at patient's floor/unit and/or counseling patient: Internal Medicine: Result - Labs CBC & Chem 7: 09/02/18 08:02 09/02/18 06:45 Labs: BMP 09/02/18 06:45 Sodium 137 Potassium 3.8 Chloride 104 Carbon Dioxide 27 BUN 22 Creatinine 0.81 Glucose 106 H Calcium 8.2 L - ABG Interpretation ABG results: PT/INR, D-dimer PT 12.6 Seconds (9.4-12.1) H 09/01/18 03:09 - Impressions Impressions Echocardiogram 09/01/18 04:34 Impressions: LVEF 50%. Normal LV chamber size, wall thickness. Atypical septal motion consistent with bundle branch block. Mild global left ventricular systolic dysfunction. Mild left ventricular diastolic dysfunction. Normal right ventricular structure and function. Mild tricuspid regurgitation. No pulmonary hypertension. Left Ventricular Wall Motion: Rest Echo Findings All wall segments showed normal motion. Findings: Study Quality * Technically sub-optimal due to poor echocardiographic windows. ECG Findings * Sinus rhythm with BBB. Left Ventricle * LVEF 50%. * Normal LV chamber size, wall thickness. * Atypical septal motion consistent with bundle branch block. * Mild left ventricular diastolic dysfunction. Right Ventricle * Normal right ventricular structure and function. Left Atrium * Mildly dilated left atrium. Right Atrium * Normal right atrial size. Aortic Valve * Trileaflet aortic valve. * Mildly calcified aortic valve leaflets. * No aortic stenosis. * No aortic regurgitation. Mitral Valve * Mild mitral annular calcification * No mitral regurgitation. * No mitral stenosis. Tricuspid Valve * Normal tricuspid valve structure. * Mild tricuspid regurgitation. * No pulmonary hypertension. Pulmonic Valve * Normal pulmonic valve structure and function. * No pulmonic regurgitation. Aorta * Normally sized aortic root. Pericardium * The pericardium appears normal. IVC * The IVC is not well evaluated. Pulmonary Artery * Normal visualized portions of the main pulmonary artery. Femur X-Ray 09/01/18 10:08 IMPRESSION: 1. Comminuted, displaced fracture of the distal femoral metadiaphysis. 2. Inferior displacement of the patella with questionable superior patellar fracture. 3. Status post left hip arthroplasty. No hardware complication. D/ / 09/01/2018 12:51:50 Frida Ontiveros MD / delgado Interpreting Provider: Frida Ontiveros MD Knee CT 09/01/18 10:09 IMPRESSION: 1. Comminuted distal femur fracture with extension to the intercondylar notch. Likely a pathologic fracture with suspected underlying lytic metastasis. 2. There is a 16 mm lytic lesion in the medial tibial metaphysis concerning for metastatic disease. 3. Fractured 7 mm osteophyte from the superior pole of the patella. D/ / 09/01/2018 12:11:43 Ze Cantu MD / delgado Interpreting Provider: Ze Cantu MD Consult Discharge Plan - Plan Referrals: Deja Nettles, OIL DERRICK OPERATOR [Primary Care Provider] - (1) Closed fracture of left distal femur Qualifiers: Encounter type: initial encounter Fracture morphology: unspecified fracture morphology Qualified Code(s): S72.402A - Unspecified fracture of lower end of left femur, initial encounter for closed fracture (2) Breast cancer metastasized to bone Qualifiers: Laterality: left Qualified Code(s): C50.912 - Malignant neoplasm of unspecified site of left female breast; C79.51 - Secondary malignant neoplasm of bone (4) Deep vein thrombosis (DVT) of popliteal vein of left lower extremity Qualifiers: Chronicity: chronic Qualified Code(s): I82.532 - Chronic embolism and thrombosis of left popliteal vein
[2018-09-02 08:30] LABS: Hematocrit 19.9 % (35.3-44.9); Mean Corpuscular HGB Conc 34.2 g/dL (31.6-35.5); Mean Corpuscular Volume 111.2 fL (83.0-100.0); Mean Platelet Volume 11.5 fL (9.4-12.4); Red Blood Count 1.79 M/mcL (3.82-4.97); Red Cell Distribution Width 13.7 % (11.5-14.5)
[2018-09-02 08:36] LABS: Platelet Count 59 K/mcL (140-400)
[2018-09-02 08:41] LABS: Hemoglobin 6.8 g/dL (11.5-15.4)
[2018-09-02 08:57] LABS: Lymphocytes # 0.5 K/mcL (0.6-4.6); Monocytes # 0.1 K/mcL (0.0-1.3); Neutrophils # 1.3 K/mcL (1.6-8.9)
[2018-09-02] MEDS: Multivit/Ca/Min/Fe/FA 1 TAB TABLET PO SCH (10:06)
[2018-09-02] MEDS: Aspirin Enteric Coated 81 MG Tablet PO SCH (10:06)
--- NOTE | 2018-09-02 11:16 | Orthopedics Progress Note ---
Date of Encounter: 09/02/18 Time of Encounter: 11:14 - Assessment and Plan (1) Femoral distal fracture Current Visit: Yes Status: Acute Qualifiers: Encounter type: initial encounter Fracture type: closed Fracture morphology: unspecified fracture morphology Laterality: left Qualified Code(s): S72.402A - Unspecified fracture of lower end of left femur, initial encounter for closed fracture Subjective Interval history: S: Patient is seen today and has no complaints. Pain well-controlled to the left knee. O: Afebrile and vital signs are stable Swelling and tenderness as expected to the left knee area. Neurovascularly intact distally A: Left distal femur fracture below a long stem hip prosthesis P: Hemoglobin noted. Discussed with the hospitalist will transfuse today. Holding heparin. Anticipate reduction and fixation by Dr. Beach on Tuesday. Pillow splint and comfort measures until then. Objective Vital signs: Vital Signs Temp Pulse Resp BP Pulse Ox 09/02/18 07:16 99.4 F 74 16 128/68 92 09/02/18 04:08 99.0 F 75 16 116/68 92 09/01/18 23:42 98.6 F 65 17 110/66 93 09/01/18 18:45 97.9 F 63 16 111/70 96 09/01/18 18:02 96/61 09/01/18 16:00 98.3 F 73 16 88/56 90 09/01/18 15:45 98.3 F 73 13 90 09/01/18 11:48 98.8 F 65 12 103/62 92 Intake and Output 09/01/18 09/02/18 09/02/18 23:59 07:59 15:59 Intake Total 300 / 300 360 / 360 Output Total 400 / 400 Balance -100 / -100 360 / 360 Intake: Oral 300 / 300 360 / 360 Output: Catheter 400 / 400 Other: Meal Breakfast Percent of Meal Consumed 100% Weight 83.2 kg Patient Weight 09/02/18 23:59 Weight 83.2 kg - Labs CBC & BMP: 09/02/18 08:02 09/02/18 06:45 Labs: Abnormal lab results WBC 1.9 K/mcL (4.3-11.1) L 09/02/18 08:02 RBC 1.79 M/mcL (3.82-4.97) L 09/02/18 08:02 Hgb 6.8 g/dL (11.5-15.4) L D 09/02/18 08:02 Hct 19.9 % (35.3-44.9) L 09/02/18 08:02 MCV 111.2 fL (83.0-100.0) H 09/02/18 08:02 MCH 38.0 pg (28.0-33.3) H 09/02/18 08:02 Plt Count 59 K/mcL (140-400) L 09/02/18 08:02 Neutrophils # 1.3 K/mcL (1.6-8.9) L 09/02/18 08:02 Lymphocytes # 0.5 K/mcL (0.6-4.6) L 09/02/18 08:02 Platelet Estimate Decreased (Normal) L 09/01/18 03:05 PT 12.6 Seconds (9.4-12.1) H 09/01/18 03:09 APTT 134.3 Seconds (26.0-36.0) H* 09/01/18 03:09 BUN/Creatinine Ratio 27 (6-26) H 09/02/18 06:45 Glucose 106 mg/dL (70-105) H 09/02/18 06:45 Calcium 8.2 mg/dL (8.6-10.3) L 09/02/18 06:45 Consult Discharge Plan - Plan Referrals: Deja Nettles, OCEANIC SCIENCES PROFESSOR [Primary Care Provider] -
[2018-09-02] MEDS ORDERED: Ondansetron 4 MG/2 ML VIAL IVP PRN (11:51)
[2018-09-02] MEDS: 0.9 % Sodium Chloride 250 ML IVC SCH ×2 (13:34→22:41)
[2018-09-03 04:55] LABS: Hemoglobin 8.1 g/dL (11.5-15.4); Immature Granulocytes % 0.5 % (0-4)
[2018-09-03 04:57] LABS: Hematocrit 23.9 % (35.3-44.9); Immature Platelets 4.3 % (1.1-6.1); Lymphocytes # 0.5 K/mcL (0.6-4.6); Lymphocytes % 22.6 %; Mean Corpuscular HGB Conc 33.9 g/dL (31.6-35.5); Mean Corpuscular Hemoglobin 34.9 pg (28.0-33.3); Mean Platelet Volume 11.1 fL (9.4-12.4); Monocytes # 0.2 K/mcL (0.0-1.3); Monocytes % 11.6 %; Neutrophils # 1.3 K/mcL (1.6-8.9); Nucleated Red Blood Cells 3.5 /100 WBC (0); Red Blood Count 2.32 M/mcL (3.82-4.97); Red Cell Distribution Width 19.9 % (11.5-14.5); Segmented Neutrophils % 64.3 %
[2018-09-03 05:04] LABS: Platelet Count 55 K/mcL (140-400)
[2018-09-03 05:12] LABS: BUN/Creatinine Ratio 16 (6-26); Blood Urea Nitrogen 12 mg/dL (8-23); Carbon Dioxide 27 mEq/L (23-29); Chloride 104 mEq/L (98-107); Glucose 106 mg/dL (70-105); Osmolality,Calculated 282 (280-300); Potassium 3.6 mEq/L (3.5-5.1); Sodium 136 mEq/L (136-145); eGFR For Non-African Americans > 60 (> 60)
[2018-09-03 05:33] LABS: Platelet Estimate Marked Decrease (Normal)
[2018-09-03] MEDS: Multivit/Ca/Min/Fe/FA 1 TAB TABLET PO SCH (09:31)
[2018-09-03] MEDS: Aspirin Enteric Coated 81 MG Tablet PO SCH (09:31)
[2018-09-03] MEDS: OXYCODONE Oral CONC 10 MG/0.5 ML ORAL.SYG SL PRN ×2 (09:31→15:33)
--- NOTE | 2018-09-03 10:03 | Orthopedics Progress Note ---
Date of Encounter: 09/03/18 Time of Encounter: 10:01 - Assessment and Plan (1) Femoral distal fracture Current Visit: Yes Status: Acute Qualifiers: Encounter type: initial encounter Fracture type: closed Fracture morphology: unspecified fracture morphology Laterality: left Qualified Code(s): S72.402A - Unspecified fracture of lower end of left femur, initial encounter for closed fracture Subjective Interval history: S: Patient is seen today and has no complaints. Pain well-controlled to the left knee with pillow splint. O: Afebrile and vital signs are stable Swelling and tenderness as expected to the left knee area. Neurovascularly intact distally A: Left distal femur fracture below a long stem hip prosthesis P: Anticipate further transfusion in preparation for surgery tomorrow. Anticipate reduction and fixation by Dr. Beach on Tuesday. Pillow splint and comfort measures until then. NPO p midnight. Objective Vital signs: Vital Signs Temp Pulse Resp BP Pulse Ox 09/03/18 07:01 98.2 F 80 15 131/66 94 09/03/18 00:50 99.9 F H 76 14 130/75 93 09/02/18 19:07 98.2 F 72 14 123/71 96 09/02/18 17:18 98.6 F 72 20 128/75 94 09/02/18 13:46 97.5 F L 89 20 145/84 93 09/02/18 13:34 99.1 F 82 22 161/77 94 09/02/18 11:22 99.0 F 72 16 117/68 91 Intake and Output 09/02/18 09/03/18 09/03/18 23:59 07:59 15:59 Intake Total 1089 / 1089 150 / 150 240 / 240 Output Total 1325 / 1325 900 / 900 Balance -236 / -236 -750 / -750 240 / 240 Intake: Oral 790 / 790 150 / 150 240 / 240 Blood Product 299 / 299 Rbcs Leuko Poor As-1 Unit 299 / 299 [id number] Output: Catheter 1325 / 1325 900 / 900 Other: Meal Dinner Breakfast Percent of Meal Consumed 100% 95% Weight 83.6 kg Patient Weight 09/03/18 23:59 Weight 83.6 kg - Labs CBC & BMP: 09/03/18 04:30 09/03/18 04:30 Labs: Abnormal lab results WBC 2.0 K/mcL (4.3-11.1) L 09/03/18 04:30 RBC 2.32 M/mcL (3.82-4.97) L 09/03/18 04:30 Hgb 8.1 g/dL (11.5-15.4) L 09/03/18 04:30 Hct 23.9 % (35.3-44.9) L 09/03/18 04:30 MCV 103.0 fL (83.0-100.0) H D 09/03/18 04:30 MCH 34.9 pg (28.0-33.3) H 09/03/18 04:30 RDW 19.9 % (11.5-14.5) H 09/03/18 04:30 Plt Count 55 K/mcL (140-400) L 09/03/18 04:30 Neutrophils # 1.3 K/mcL (1.6-8.9) L 09/03/18 04:30 Lymphocytes # 0.5 K/mcL (0.6-4.6) L 09/03/18 04:30 Nucleated RBCs/100 WBC 3.5 /100 WBC (0) H 09/03/18 04:30 Platelet Estimate Marked Decrease (Normal) L 09/03/18 04:30 PT 12.6 Seconds (9.4-12.1) H 09/01/18 03:09 APTT 134.3 Seconds (26.0-36.0) H* 09/01/18 03:09 Glucose 106 mg/dL (70-105) H 09/03/18 04:30 Calcium 8.0 mg/dL (8.6-10.3) L 09/03/18 04:30 - VTE Documentation of Mechanical Device: Intermittent pneumatic compression device Consult Discharge Plan - Plan Referrals: Deja Nettles, FLOOR NURSE [Primary Care Provider] -
[2018-09-03] MEDS ORDERED: 0.9 % Sodium Chloride 250 ML ONE (15:04)
--- NOTE | 2018-09-03 18:21 | Internal Med Progress Note ---
Hospitalist Progress Note - Encounter Date of Encounter: 09/03/18 Time of Encounter: 11:00 - Subjective Interval History: No acute events. - Exam Vitals: Temp Pulse Resp BP Pulse Ox 98.2 F 67 16 114/69 95 09/03/18 15:47 09/03/18 15:47 09/03/18 15:47 09/03/18 15:47 09/03/18 15:47 Exam: General: Well developed white female lying comfortably in bed in no acute di stress. Skin: Pale, warm and supple. HEENT: Moist mucous membranes. + conjunctivae pallor. Neck: Chemo port noted in right jugular. Chest: Normal thoracic expansion. Normal breath sounds. Clear to auscultation. Heart: Normal S1 & S2; rhythmic. No rubs or murmurs. Abdomen: Non-distended, soft and non-tender to palpation. No peritoneal reaction. Extremities: Markedly edematous and ecchymotic left knee. There is observable physical deformity to the left distal femur proximal to the knee. Strength and range of motion around the knee joint were not tested however the patient was able to move her foot and wiggle her toes and confirmed intact sensation in the distal extremity. Neurological: Awake, alert and oriented to person, place and time. No focal deficits. - Assessment and Plan (1) Closed fracture of left distal femur Current Visit: Yes Status: Acute Assessment and Plan: Patient presented for left lower extremity pain after a mechanical fall Imaging revealed a severely comminuted distal left femur fracture She does have a history of pathologic fractures secondary to bony metastases from primary breast cancer Orthopedics was consulted who reported that Dr. Beach primarily handles complicated fractures of this nature and he is currently out of town This was discussed with the patient who decided she would like to remain here and wait for Dr. Beach, he has operated on her in the past The patient was determined to be hemodynamically and neurovascularly stable to postpone the procedure The patient reports over 4 Mets of functional ability prior to injury, EKG without acute dynamic changes, echocardiogram demonstrates preserved EF plan Scheduled oxycodone for pain control, subcutaneous heparin for DVT prophylaxis, home Dabigatran held due to bleeding risk Surgery planned for tomorrow. (2) Breast cancer metastasized to bone Current Visit: Yes Status: Acute Assessment and Plan: Will continue to follow with medical and radiation oncology as an outpatient. (3) Pancytopenia due to antineoplastic chemotherapy Current Visit: Yes Status: Acute Assessment and Plan: Will continue to monitor trend and observe for bleeding. Seems stable and at baseline for now however. CBC for today is pending. (4) Deep vein thrombosis (DVT) of popliteal vein of left lower extremity Current Visit: Yes Status: Chronic Assessment and Plan: History of previous DVT, on Dabigatran at home Will hold current oral anticoagulant therapy in case surgery is planned. Will keep on SubQ heparin in the interim for prophylaxis. (5) Anemia Current Visit: No Status: Acute Assessment and Plan: Likely from chronic disease related to metastatic disease. Transfused one unit PRBC yesterday, will transfuse additional unit today. - Time Spent with Patient Total time spent is greater than 50% in coordination of care (as documented) at patient's floor/unit and/or counseling patient: Internal Medicine: Result - Labs CBC & Chem 7: 09/03/18 04:30 09/03/18 04:30 Labs: Short CBC 09/03/18 Range/Units 04:30 WBC 2.0 L (4.3-11.1) K/mcL Hgb 8.1 L (11.5-15.4) g/dL Hct 23.9 L (35.3-44.9) % Plt Count 55 L (140-400) K/mcL Neutrophils # 1.3 L (1.6-8.9) K/mcL BMP 09/03/18 04:30 Sodium 136 Potassium 3.6 Chloride 104 Carbon Dioxide 27 BUN 12 Creatinine 0.74 Glucose 106 H Calcium 8.0 L - ABG Interpretation ABG results: PT/INR, D-dimer PT 12.6 Seconds (9.4-12.1) H 09/01/18 03:09 - Impressions Impressions Knee CT 09/01/18 10:09 IMPRESSION: 1. Comminuted distal femur fracture with extension to the intercondylar notch. Likely a pathologic fracture with suspected underlying lytic metastasis. 2. There is a 16 mm lytic lesion in the medial tibial metaphysis concerning for metastatic disease. 3. Fractured 7 mm osteophyte from the superior pole of the patella. D/ / 09/01/2018 12:11:43 Ze Cantu MD / [email or web address] Interpreting Provider: Ze Cantu MD - VTE Documentation of Mechanical Device: Intermittent pneumatic compression device Consult Discharge Plan - Plan Referrals: Deja Nettles, VAULT CASHIER [Primary Care Provider] - (1) Closed fracture of left distal femur Qualifiers: Encounter type: initial encounter Fracture morphology: unspecified fracture morphology Qualified Code(s): S72.402A - Unspecified fracture of lower end of left femur, initial encounter for closed fracture (2) Breast cancer metastasized to bone Qualifiers: Laterality: left Qualified Code(s): C50.912 - Malignant neoplasm of unspecified site of left female breast; C79.51 - Secondary malignant neoplasm of bone (4) Deep vein thrombosis (DVT) of popliteal vein of left lower extremity Qualifiers: Chronicity: chronic Qualified Code(s): I82.532 - Chronic embolism and thrombosis of left popliteal vein (5) Anemia Qualifiers: Other causes of anemia: antineoplastic chemotherapy
[2018-09-03] MEDS: *HR* Heparin 5,000 UNIT/ML VIAL SQ SCH (19:11)
[2018-09-03] MEDS: 0.9 % Sodium Chloride 250 ML IVC SCH (19:11)
[2018-09-04] MEDS: Ketorolac 30 MG/ML VIAL IVP PRN (02:48)
[2018-09-04 03:18] LABS: Basophils % 0.4 %; Immature Granulocytes % 0.4 % (0-4); Red Cell Distribution Width 19.9 % (11.5-14.5)
[2018-09-04 03:19] LABS: Hematocrit 28.3 % (35.3-44.9); Hemoglobin 9.9 g/dL (11.5-15.4); Immature Platelets 5.2 % (1.1-6.1); Lymphocytes # 0.6 K/mcL (0.6-4.6); Lymphocytes % 25.7 %; Mean Corpuscular Hemoglobin 34.6 pg (28.0-33.3); Mean Platelet Volume 10.6 fL (9.4-12.4); Monocytes # 0.3 K/mcL (0.0-1.3); Neutrophils # 1.5 K/mcL (1.6-8.9); Red Blood Count 2.86 M/mcL (3.82-4.97); Segmented Neutrophils % 62.5 %
[2018-09-04 03:20] LABS: Platelet Count 66 K/mcL (140-400)
[2018-09-04 03:41] LABS: BUN/Creatinine Ratio 17 (6-26); Blood Urea Nitrogen 13 mg/dL (8-23); Calcium 8.4 mg/dL (8.6-10.3); Carbon Dioxide 28 mEq/L (23-29); Chloride 101 mEq/L (98-107); Glucose 120 mg/dL (70-105); Osmolality,Calculated 281 (280-300); Platelet Estimate Decreased (Normal); Potassium 3.7 mEq/L (3.5-5.1); Reactive Lymphocytes Present (Not Present); Sodium 135 mEq/L (136-145); eGFR For Non-African Americans > 60 (> 60)
--- NOTE | 2018-09-04 08:03 | Orthopedics Progress Note ---
Date of Encounter: 09/04/18 Time of Encounter: 08:03 - Assessment and Plan (1) Closed fracture of left distal femur Current Visit: Yes Status: Acute Qualifiers: Encounter type: initial encounter Fracture morphology: unspecified fracture morphology Qualified Code(s): S72.402A - Unspecified fracture of lower end of left femur, initial encounter for closed fracture (2) Fall Current Visit: Yes Status: Acute Qualifiers: Encounter type: initial encounter Qualified Code(s): W19.XXXA - Unspecified fall, initial encounter (3) History of left hip replacement Current Visit: Yes Status: Chronic Subjective Principal diagnosis: left distal femur fracture Interval history: Patient presents after mechanical fall tripping on rug with distal femur fracture. Patient denies LOC or head trauma with fall. Patient is well known to [facility] having a left hip replacement per patient appx [address] Beach. Patient admits to several falls recently - last being at her [employer] where she hit the right side of her face per patient several months ago. Patient admits to chronic swelling of the LLE following hip revision. She states that after tripping and falling which she states she cannot remember how she landed, she was unable to get up and ambulate and thus was brought to ED for evaluation On exam patient resting comfortably in bed supine. Alert and oriented x 3. No acute distress. Bruising noted to the right cheek however patient states this is old. Left leg noted to be propped on pillow with external rotation noted at the knee. ecchymosis to the anterior knee. LLE notably swollen compared to the right. No calf tenderness bilaterally. Tender about the knee as expected. Neurovascualrly intact distally. Dorsiflexion noted to left ankle. CT/CT knee LT wo con IMPRESSION: 1. Comminuted distal femur fracture with extension to the intercondylar notch. Likely a pathologic fracture with suspected underlying lytic metastasis. 2. There is a 16 mm lytic lesion in the medial tibial metaphysis concerning for metastatic disease. 3. Fractured 7 mm osteophyte from the superior pole of the patella. D/ / 09/01/2018 12:11:43 Ze Cantu MD / delgado Assessment: left distal femur fracture repeat falls history of left hip replacement/revision Plan: Case discussed with Dr. Beach Consent reviewed and obtained after patient questions satisfactorily obtained for left distal femur orif NPO type and cross already on record nwb to affected extremity no knee or hip motion to the LLE. Ana noted to be in place Surgery today Objective Vital signs: Vital Signs Temp Pulse Resp BP Pulse Ox 09/04/18 07:50 97.8 F 60 16 115/68 95 09/04/18 05:41 92/54 09/04/18 02:31 99.1 F 73 18 108/68 93 09/03/18 23:03 100.2 F H 75 18 137/73 93 09/03/18 21:22 94 09/03/18 19:23 98.4 F 75 14 119/76 94 09/03/18 18:28 98 F 72 18 128/78 96 09/03/18 15:47 98.2 F 67 16 114/69 95 09/03/18 15:29 98.2 F 72 20 112/52 95 09/03/18 15:10 98.5 F 70 19 115/68 93 09/03/18 12:22 98.1 F 70 16 108/70 95 Intake and Output 09/03/18 09/04/18 09/04/18 23:59 07:59 15:59 Intake Total 518 / 518 0 / 0 Output Total 500 / 500 325 / 325 Balance -325 / -325 Intake: Oral 220 / 220 0 / 0 Blood Product 298 / 298 Rbcs Leuko Poor As-1 Unit 298 / 298 [id number] Output: Catheter 500 / 500 325 / 325 Other: Meal Dinner Percent of Meal Consumed 90% Weight 84.8 kg Patient Weight 09/04/18 23:59 Weight 84.8 kg - Labs CBC & BMP: 09/04/18 03:04 09/04/18 03:04 Labs: Abnormal lab results WBC 2.4 K/mcL (4.3-11.1) L 09/04/18 03:04 RBC 2.86 M/mcL (3.82-4.97) L 09/04/18 03:04 Hgb 9.9 g/dL (11.5-15.4) L D 09/04/18 03:04 Hct 28.3 % (35.3-44.9) L 09/04/18 03:04 MCH 34.6 pg (28.0-33.3) H 09/04/18 03:04 RDW 19.9 % (11.5-14.5) H 09/04/18 03:04 Plt Count 66 K/mcL (140-400) L 09/04/18 03:04 Neutrophils # 1.5 K/mcL (1.6-8.9) L 09/04/18 03:04 Nucleated RBCs/100 WBC 3.5 /100 WBC (0) H 09/03/18 04:30 Reactive Lymphocytes Present (Not Present) A 09/04/18 03:04 Platelet Estimate Decreased (Normal) L 09/04/18 03:04 PT 12.6 Seconds (9.4-12.1) H 09/01/18 03:09 APTT 134.3 Seconds (26.0-36.0) H* 09/01/18 03:09 Sodium 135 mEq/L (136-145) L 09/04/18 03:04 Glucose 120 mg/dL (70-105) H 09/04/18 03:04 Calcium 8.4 mg/dL (8.6-10.3) L 09/04/18 03:04 - VTE Documentation of Mechanical Device: Intermittent pneumatic compression device Consult Discharge Plan - Plan Referrals: Deja Nettles, APPOINTMENT SPECIALIST [Primary Care Provider] -
[2018-09-04] MEDS: Multivit/Ca/Min/Fe/FA 1 TAB TABLET PO SCH (08:36)
[2018-09-04] MEDS: Aspirin Enteric Coated 81 MG Tablet PO SCH (08:36)
--- NOTE | 2018-09-04 12:05 | Anesthesia Evaluation PreOp ---
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: Other (DEPRESSION, RECURRENT FALLS) Other Medical History: Bleeding (ANEMIA, THROMBOCYTOPENIA), Other (METASTATIC BREAST CA, BONE METS TO C6, T10, L5, LEFT FEMORAL HEAD, ON CHEMO) Anesthesia History: No Prior Anesthetic Complications, Past Anesthesia Alcohol Use: none Drug use: none Medications and Allergies Carvedilol [Coreg] 6.25 mg PO BIDWM 02/26/15 [History] Aspirin [Lo-Dose Aspirin EC] 81 mg PO DAILY 12/27/17 [History] Dabigatran Etexilate Mesylate [Pradaxa] 110 mg PO BID #180 capsule 05/16/18 [Rx] Cyanocobalamin (B-12) [Vitamin B12] 1,000 mcg IM QMONTH #12 vial 07/26/18 [Rx] Palbociclib [Ibrance] 100 mg PO DAILY #21 capsule 08/07/18 [Rx] Losartan Potassium 50 mg PO DAILY 09/02/18 [History] Multivitamin [Daily Multiple Vitamin] 1 tab PO DAILY 09/02/18 [History] Allergy/AdvReac Type Severity Reaction Status Date / Time Penicillins [PCN] Allergy Swelling Verified 09/02/18 14:33 of Lip/Tongue/Throat Sulfa (Sulfonamide Allergy Rash Verified 09/02/18 14:33 Antibiotics) - Meds/Allergy Pre-op Review Medications Reviewed: Yes Allergies Reviewed: Yes Beta Blockers on Current Med List: Yes If Beta Blockers taken, Date/Time (Last Dose taken): 829 Anesthesia Results - Labs 09/04/18 03:04 09/04/18 03:04 Laboratory Tests 09/04/18 03:04 Est GFR (Non-Af Amer) > 60 Calcium 8.4 L Anesthesia Exam Vital Signs/O2 Sat/Glucose, Most Recent Temp Pulse Resp BP Pulse Ox 97.9 F 64 16 116/73 97 09/04/18 10:49 09/04/18 10:49 09/04/18 10:49 09/04/18 10:49 09/04/18 10:49 NPO (# of Hours): 8 - HEENT Mallampati: I (OVERBITE) Teeth: Normal Oral Opening: Greater than 3 - Cardiac Rhythm: Regular - Pulmonary Breath Sounds: bilateral Clear Respiratory Effort: Symmetrical Anesthesia Assess/Plan ASA Score: 4 Anesthetic Plan: General Autologous Blood: Yes (POSSIBLE PRBC, PLATELETS, FFP) Monitoring Plan: Standard Monitors, A-Line (POSSIBLE), CVC (POSSIBLE) Recovery Plan: PACU
[2018-09-04] MEDS ORDERED: *HR* FentaNYL (PF) 100 MCG/2 ML VIAL ONE (16:28)
[2018-09-04] MEDS ORDERED: *HR* Propofol 200 MG/20 ML VIAL IVP ONE (16:28)
[2018-09-04] MEDS ORDERED: Lidocaine -MPF 2% 2 ML VIAL ONE (16:36)
--- NOTE | 2018-09-04 16:49 | Internal Med Progress Note ---
<Sher Roberts - Last Filed: 09/04/18 16:46> Hospitalist Progress Note - Encounter Date of Encounter: 09/04/18 Time of Encounter: 08:10 - Subjective Interval History: Patient is resting comfortably in bed at time of examination. She is scheduled for surgery today without any acute complaints. - Exam Vitals: Temp Pulse Resp BP Pulse Ox 98.2 F 66 16 121/72 97 09/04/18 14:00 09/04/18 14:00 09/04/18 14:00 09/04/18 14:00 09/04/18 14:00 Exam: General: Well developed white female lying comfortably in bed in no acute distress. Skin: Pale, warm and supple. HEENT: Moist mucous membranes. Neck: Chemo port noted in right jugular. Chest: Normal thoracic expansion. Normal breath sounds. Clear to auscultation. Heart: Normal S1 & S2; rhythmic. No rubs or murmurs. Abdomen: Non-distended, soft and non-tender to palpation. No peritoneal reaction. Extremities: Markedly edematous and ecchymotic left knee. There is observable physical deformity to the left distal femur proximal to the knee. Strength and range of motion around the knee joint were not tested however the patient was able to move her foot and wiggle her toes and confirmed intact sensation in the distal extremity. Neurological: Awake, alert and oriented to person, place and time. No focal deficits. - Assessment and Plan (1) Breast cancer metastasized to bone Current Visit: Yes Status: Acute Assessment and Plan: Will continue to follow with medical and radiation oncology as an outpatient. (2) Anemia Current Visit: No Status: Acute Assessment and Plan: Likely from chronic disease related to metastatic disease. Transfused 2U PRBC over the weekend with rise in Hgb to 9.9. continue to monitor (3) Pancytopenia due to antineoplastic chemotherapy Current Visit: Yes Status: Acute Assessment and Plan: Will continue to monitor trend and observe for bleeding. Seems stable and at baseline for now however. (4) Closed fracture of left distal femur Current Visit: Yes Status: Acute Assessment and Plan: Patient presented for left lower extremity pain after a mechanical fall Imaging revealed a severely comminuted distal left femur fracture She does have a history of pathologic fractures secondary to bony metastases from primary breast cancer Orthopedics was consulted who reported that Dr. Beach primarily handles complicated fractures of this nature and he is currently out of town This was discussed with the patient who decided she would like to remain here and wait for Dr. Beach, he has operated on her in the past The patient was determined to be hemodynamically and neurovascularly stable to postpone the procedure The patient reports over 4 Mets of functional ability prior to injury, EKG without acute dynamic changes, echocardiogram demonstrates preserved EF plan Scheduled oxycodone for pain control, subcutaneous heparin for DVT prophylaxis, home Dabigatran held due to bleeding risk Surgery planned for this evening (5) Deep vein thrombosis (DVT) of popliteal vein of left lower extremity Current Visit: Yes Status: Chronic Assessment and Plan: History of previous DVT, on Dabigatran at home Will hold current oral anticoagulant therapy in case surgery is planned. Will keep on SubQ heparin in the interim for prophylaxis. - Time Spent with Patient Total time spent is greater than 50% in coordination of care (as documented) at patient's floor/unit and/or counseling patient: Internal Medicine: Result - Labs CBC & Chem 7: 09/04/18 03:04 09/04/18 03:04 Labs: Short CBC 09/04/18 Range/Units 03:04 WBC 2.4 L (4.3-11.1) K/mcL Hgb 9.9 L D (11.5-15.4) g/dL Hct 28.3 L (35.3-44.9) % Plt Count 66 L (140-400) K/mcL Neutrophils # 1.5 L (1.6-8.9) K/mcL BMP 09/04/18 03:04 Sodium 135 L Potassium 3.7 Chloride 101 Carbon Dioxide 28 BUN 13 Creatinine 0.75 Glucose 120 H Calcium 8.4 L - ABG Interpretation ABG results: PT/INR, D-dimer PT 12.6 Seconds (9.4-12.1) H 09/01/18 03:09 - VTE Documentation of Mechanical Device: Intermittent pneumatic compression device Consult Discharge Plan - Plan Referrals: Deja Nettles, MATERIAL CHASER [Primary Care Provider] - <King Olivier - Last Filed: 09/04/18 18:07> Hospitalist Progress Note - Encounter Date of Encounter: 09/04/18 - Exam Vitals: Temp Pulse Resp BP Pulse Ox 98.2 F 66 16 121/72 97 09/04/18 14:00 09/04/18 14:00 09/04/18 14:00 09/04/18 14:00 09/04/18 14:00 - Assessment and Plan (1) Closed fracture of left distal femur Current Visit: Yes Status: Acute (2) Breast cancer metastasized to bone Current Visit: Yes Status: Acute (3) Pancytopenia due to antineoplastic chemotherapy Current Visit: Yes Status: Acute (4) Deep vein thrombosis (DVT) of popliteal vein of left lower extremity Current Visit: Yes Status: Chronic (5) Anemia Current Visit: No Status: Acute - Time Spent with Patient Total time spent is greater than 50% in coordination of care (as documented) at patient's floor/unit and/or counseling patient: Internal Medicine: Result - Labs CBC & Chem 7: 09/04/18 03:04 09/04/18 03:04 Labs: Short CBC 09/04/18 Range/Units 03:04 WBC 2.4 L (4.3-11.1) K/mcL Hgb 9.9 L D (11.5-15.4) g/dL Hct 28.3 L (35.3-44.9) % Plt Count 66 L (140-400) K/mcL Neutrophils # 1.5 L (1.6-8.9) K/mcL BMP 09/04/18 03:04 Sodium 135 L Potassium 3.7 Chloride 101 Carbon Dioxide 28 BUN 13 Creatinine 0.75 Glucose 120 H Calcium 8.4 L - ABG Interpretation ABG results: PT/INR, D-dimer PT 12.6 Seconds (9.4-12.1) H 09/01/18 03:09 - Attending Attestation I examined this patient and my medical decision-making was reviewed with the Resident Physician. I agree with the documented findings, disposition and treatment plan as described except to the extent set forth below. <Sher Roberts - Last Filed: 09/04/18 16:46> (1) Breast cancer metastasized to bone Qualifiers: Laterality: left Qualified Code(s): C50.912 - Malignant neoplasm of unspecified site of left female breast; C79.51 - Secondary malignant neoplasm of bone (2) Anemia Qualifiers: Other causes of anemia: antineoplastic chemotherapy (4) Closed fracture of left distal femur Qualifiers: Encounter type: initial encounter Fracture morphology: unspecified fracture morphology Qualified Code(s): S72.402A - Unspecified fracture of lower end of left femur, initial encounter for closed fracture (5) Deep vein thrombosis (DVT) of popliteal vein of left lower extremity Qualifiers: Chronicity: chronic Qualified Code(s): I82.532 - Chronic embolism and thrombosis of left popliteal vein <King Olivier - Last Filed: 09/04/18 18:07> (1) Closed fracture of left distal femur Qualifiers: Encounter type: initial encounter Fracture morphology: unspecified fracture morphology Qualified Code(s): S72.402A - Unspecified fracture of lower end of left femur, initial encounter for closed fracture (2) Breast cancer metastasized to bone Qualifiers: Laterality: left Qualified Code(s): C50.912 - Malignant neoplasm of unspecified site of left female breast; C79.51 - Secondary malignant neoplasm of bone (4) Deep vein thrombosis (DVT) of popliteal vein of left lower extremity Qualifiers: Chronicity: chronic Qualified Code(s): I82.532 - Chronic embolism and thrombosis of left popliteal vein (5) Anemia Qualifiers: Other causes of anemia: antineoplastic chemotherapy
[2018-09-04] MEDS ORDERED: Clindamycin 900 MG/50 ML 900 MG/50 ML IV.SOLN IVPB ONE ×2 (17:18→17:28)
[2018-09-04] MEDS ORDERED: *HR* HYDROmorphone (PF) 1 MG/ML SYRINGE IVP PRN ×2 (17:53→20:41)
[2018-09-04] MEDS ORDERED: *HR* Meperidine 25 MG/ML SYRINGE IVP PRN ×2 (17:53→20:41)
[2018-09-04] MEDS ORDERED: *HR* OxyCODONE Immed Rel 5 MG TABLET PO PRN ×2 (17:53→20:41)
[2018-09-04] MEDS ORDERED: *HR* Promethazine 25 MG/ML VIAL IVP PRN ×2 (17:53→20:41)
[2018-09-04] MEDS ORDERED: Naloxone 0.4 MG/ML INJ IVP PRN ×2 (17:53→20:41)
[2018-09-04] MEDS ORDERED: Ondansetron 4 MG/2 ML VIAL IVP ONE (17:53)
[2018-09-04] MEDS ORDERED: Ringers Solution, Lactated 1,000 ML IVC SCH ×2 (18:00→20:41)
[2018-09-04] MEDS ORDERED: *HR* Morphine 10 MG/ML VIAL ONE (18:17)
[2018-09-04] MEDS ORDERED: EPHEDrine 50 MG/ML VIAL ONE (18:22)
--- NOTE | 2018-09-04 18:59 | Orthopedic Operative Note ---
Date of procedure: 09/04/18 Pre-op diagnosis: Displaced comminuted left distal femur fracture Post-op diagnosis: same Procedure: Left distal femur open reduction internal fixation Estimated blood loss: 300 cc Hardware: Marcelo periarticular Large Frag femoral locking Plate, 2 4.5 cortical screws, 11 5.0 Locking screws Procedural Notes: Displaced comminuted fracture site packed with bone stimulating protein and bone chips Operative procedure: The patient was brought to the operating room and placed on the operating room fracture table. The well leg was placed in the well leg mg, the fracture leg was placed in the fracture leg mg. After general anesthesia was administered the operative leg was prepped and draped in the sterile surgical fashion The patient received IV antibiotics prior to skin incision. A standard lateral approach was made to the distal femur the incision is made to the skin and subcutaneous tissue. Hemostasis was obtained with Bovie cautery. Using careful blunt dissection the tensor fascia was identified and incised along the length of the incision. The vastus lateralis was elevated up after the fascia was split closing the lateral femur and the fracture site. The fractures reduced and held in place with bone holding forceps a Worth 8 hole periarticular locking plate was approximated to the lateral surface was fixed proximally compression position of the fracture as well as fracture reduction found to be acceptable with fluoroscopic evaluation. Fixation was completed distally with compression and 5.0 locking screws fixation proximally was completed with 5.0 locking screws. Position of hardware as well as fracture reduction was found to be acceptable with fluoroscopic assistance. The wound was irrigated, the fracture site was packed with 10 mL of bone stimulator protein and bone chips. The PA close the femur, the fascia was closed with a running #1 PDS suture tensa fascia was closed with a running #2 PDS suture subcutaneous tissues and closed deep #1 PDS suture superficially with 0 PDS suture and skin was closed with Dermabond and skin jaime. The patient was placed in a sterile dressing, and knee immobilizer The patient was extubated, and then transferred to the recovery room in stable condition. Anesthesia: GETA Surgeon: William Beach Was there an registered dental assistant rda present: No Estimated blood loss (cc): 300 Condition: stable Disposition: PACU
[2018-09-04 20:26] LABS: Hematocrit 28.5 % (35.3-44.9); Hemoglobin 9.8 g/dL (11.5-15.4)
--- NOTE | 2018-09-04 20:34 | Anesthesia Evaluation Post Op ---
Date of Encounter: 09/04/18 Time of Encounter: 20:34 - Vital Signs Vital Signs: Vital Signs/O2 Sat, Most Current Temp Pulse Resp BP Pulse Ox 98.7 F 65 12 98/77 100 09/04/18 20:14 09/04/18 20:14 09/04/18 20:14 09/04/18 20:14 09/04/18 20:14 - Lungs Lungs: Clear Ascult./Percussion - Airway Airway: Non-obstructed - Cardiovascular Regular Rate - Mental Status Mental Status: Alert & Oriented, Answers Appropriately - Pain Pain Scale: 0 Pain Scale used: Numeric (1 - 10) - Nausea Vomiting Nausea Vomiting: Not Present - Hydration Hydration: Ice chips - Discharge PostOp Status: Transfer Patient to floor
[2018-09-04] MEDS ORDERED: Ketorolac 30 MG/ML VIAL IVP PRN (20:41)
[2018-09-04] MEDS ORDERED: Ondansetron 4 MG/2 ML VIAL IVP PRN (20:41)
[2018-09-05] MEDS: Clindamycin 900 MG/50 ML 900 MG/50 ML IV.SOLN IVPB SCH ×2 (00:37→09:00)
--- NOTE | 2018-09-05 06:21 | Orthopedics Progress Note ---
Date of Encounter: 09/05/18 Time of Encounter: 06:20 Subjective Principal diagnosis: left distal femur fracture Interval history: Patient was seen this morning doing well without complaints. Afebrile vital signs stable. Operative extremity: Neurovascularly intact Dressing clean dry and intact Calves nontender Assessment and plan: Continue with postoperative care Nonweightbearing left lower extremity, no knee range of motion Objective Vital signs: Vital Signs Temp Pulse Resp BP Pulse Ox 09/05/18 04:20 98.8 F 58 17 127/76 100 09/04/18 23:05 97 F L 59 119/55 99 09/04/18 22:05 56 130/57 100 09/04/18 21:35 97.6 F 57 134/73 100 09/04/18 21:05 97.6 F 67 145/53 100 09/04/18 20:14 98.7 F 65 12 98/77 100 09/04/18 20:04 62 16 121/67 100 09/04/18 19:54 59 16 114/45 99 09/04/18 19:44 98.5 F 68 18 102/52 96 09/04/18 14:00 98.2 F 66 16 121/72 97 09/04/18 10:49 97.9 F 64 16 116/73 97 09/04/18 07:50 97.8 F 60 16 115/68 95 Intake and Output 09/04/18 09/04/18 09/05/18 15:59 23:59 07:59 Intake Total 50 / 50 100 / 100 Output Total 350 / 350 300 / 300 175 / 175 Balance -350 / -350 -250 / -250 -75 / -75 Intake: IV Fluids 50 / 50 Cleocin Premix 900 MG/50 ML 900 50 / 50 mg In 50 ml @ 50 mls/hr IVPB ONCE ONE Rx#:[id number] Oral 100 / 100 Output: Estimated Blood Loss 300 / 300 Catheter 350 / 350 175 / 175 - Labs CBC & BMP: 09/04/18 20:03 09/04/18 03:04 Labs: Abnormal lab results WBC 2.4 K/mcL (4.3-11.1) L 09/04/18 03:04 RBC 2.86 M/mcL (3.82-4.97) L 09/04/18 03:04 Hgb 9.8 g/dL (11.5-15.4) L 09/04/18 20:03 Hct 28.5 % (35.3-44.9) L 09/04/18 20:03 MCH 34.6 pg (28.0-33.3) H 09/04/18 03:04 RDW 19.9 % (11.5-14.5) H 09/04/18 03:04 Plt Count 66 K/mcL (140-400) L 09/04/18 03:04 Neutrophils # 1.5 K/mcL (1.6-8.9) L 09/04/18 03:04 Nucleated RBCs/100 WBC 3.5 /100 WBC (0) H 09/03/18 04:30 Reactive Lymphocytes Present (Not Present) A 09/04/18 03:04 Platelet Estimate Decreased (Normal) L 09/04/18 03:04 PT 12.6 Seconds (9.4-12.1) H 09/01/18 03:09 APTT 134.3 Seconds (26.0-36.0) H* 09/01/18 03:09 Sodium 135 mEq/L (136-145) L 09/04/18 03:04 Glucose 120 mg/dL (70-105) H 09/04/18 03:04 Calcium 8.4 mg/dL (8.6-10.3) L 09/04/18 03:04 - VTE Documentation of Mechanical Device: Intermittent pneumatic compression device Consult Discharge Plan - Plan Referrals: Deja Nettles, KNURLING MACHINE OPERATOR [Primary Care Provider] -
[2018-09-05 08:19] LABS: Hematocrit 27.2 % (35.3-44.9); Hemoglobin 9.3 g/dL (11.5-15.4)
[2018-09-05] MEDS: Multivit/Ca/Min/Fe/FA 1 TAB TABLET PO SCH (08:50)
[2018-09-05] MEDS: Aspirin Enteric Coated 81 MG Tablet PO SCH (08:51)
[2018-09-05] MEDS: OXYCODONE Oral CONC 10 MG/0.5 ML ORAL.SYG SL PRN ×2 (15:29→20:38)
--- NOTE | 2018-09-05 18:09 | Internal Med Progress Note ---
<Sher Roberts - Last Filed: 09/05/18 18:00> Hospitalist Progress Note - Encounter Date of Encounter: 09/05/18 Time of Encounter: 07:45 - Subjective Interval History: The patient is resting in a chair at bedside at time of examination. She is feeling well at time of examination. She says that her pain is very well managed at this time, and that he is not severe following the surgery. Overall she has very few complaints. - Exam Vitals: Temp Pulse Resp BP Pulse Ox 97.8 F 69 14 118/74 100 09/05/18 15:25 09/05/18 15:25 09/05/18 15:25 09/05/18 15:25 09/05/18 15:25 Exam: General: Well developed white female lying comfortably in bed in no acute distress. Skin: Pale, warm and supple. HEENT: Moist mucous membranes. Neck: Chemo port noted in right jugular. Chest: Normal thoracic expansion. Normal breath sounds. Clear to auscultation. Heart: Normal S1 & S2; rhythmic. No rubs or murmurs. Abdomen: Non-distended, soft and non-tender to palpation. No peritoneal reaction. Extremities: Left leg wrapped and splinted post-op. Distal PMS intact Neurological: Awake, alert and oriented to person, place and time. No focal deficits. - Assessment and Plan (1) Closed fracture of left distal femur Current Visit: Yes Status: Acute Assessment and Plan: Patient presented for left lower extremity pain after a mechanical fall, POD 1 Imaging revealed a severely comminuted distal left femur fracture She does have a history of pathologic fractures secondary to bony metastases from primary breast cancer She underwent ORIF with Dr. Beach yesterday and is recovering appropriately without complication thus far (2) Breast cancer metastasized to bone Current Visit: Yes Status: Acute Assessment and Plan: Will continue to follow with medical and radiation oncology as an outpatient. Patient to start 21 day course Imbrance tomorrow, will bring own med. We will rec through pharmacy. (3) Anemia Current Visit: No Status: Acute Assessment and Plan: Likely from chronic disease related to metastatic disease. Transfused 2U PRBC over the weekend with rise in Hgb to 9.9, however did lose 300mL in surgery. 9.3 today (4) Pancytopenia due to antineoplastic chemotherapy Current Visit: Yes Status: Acute Assessment and Plan: Will continue to monitor trend and observe for bleeding. Seems stable and at baseline for now however. (5) Deep vein thrombosis (DVT) of popliteal vein of left lower extremity Current Visit: Yes Status: Chronic Assessment and Plan: History of previous DVT, on Dabigatran at home Will hold current oral anticoagulant therapy in case surgery is planned. Will keep on SubQ heparin in the interim for prophylaxis. - Time Spent with Patient Total time spent is greater than 50% in coordination of care (as documented) at patient's floor/unit and/or counseling patient: Internal Medicine: Result - Labs CBC & Chem 7: 09/05/18 04:00 09/04/18 03:04 Labs: Short CBC 09/04/18 09/05/18 Range/Units 20:03 04:00 Hgb 9.8 L 9.3 L (11.5-15.4) g/dL Hct 28.5 L 27.2 L (35.3-44.9) % - ABG Interpretation ABG results: PT/INR, D-dimer PT 12.6 Seconds (9.4-12.1) H 09/01/18 03:09 - Impressions Impressions Fluoroscopy 09/04/18 00:00 IMPRESSION: Intraoperative imaging provided during left femoral ORIF. Please see operative report for further details. D/ / Leon De La Garza / Leon De La Garza Interpreting Provider: Leon De La Garza Femur X-Ray 09/04/18 18:02 IMPRESSION: 1. ORIF comminuted distal left femoral metadiaphysis fracture with lateral fixation plate and multiple screws. 2. Surgical skin closure jaime overlie the mid and distal left thigh. 3. No unexpected retained foreign body is evident. 4. Distal portions of intramedullary hadley at the proximal left femur are noted. D/ / Alli Torres / Alli Torres Interpreting Provider: Alli Torres - VTE Documentation of Mechanical Device: Intermittent pneumatic compression device Consult Discharge Plan - Plan Referrals: Deja Nettles, ROOM SERVICE CLERK [Primary Care Provider] - <King Olivier - Last Filed: 09/05/18 23:28> Hospitalist Progress Note - Encounter Date of Encounter: 09/05/18 - Exam Vitals: Temp Pulse Resp BP Pulse Ox 97.7 F 66 16 126/78 94 09/05/18 23:13 09/05/18 23:13 09/05/18 23:13 09/05/18 23:13 09/05/18 23:13 - Assessment and Plan (1) Breast cancer metastasized to bone Current Visit: Yes Status: Acute (2) Anemia Current Visit: No Status: Acute (3) Pancytopenia due to antineoplastic chemotherapy Current Visit: Yes Status: Acute (4) Closed fracture of left distal femur Current Visit: Yes Status: Acute (5) Deep vein thrombosis (DVT) of popliteal vein of left lower extremity Current Visit: Yes Status: Chronic - Time Spent with Patient Total time spent is greater than 50% in coordination of care (as documented) at patient's floor/unit and/or counseling patient: Internal Medicine: Result - Labs CBC & Chem 7: 09/05/18 04:00 09/04/18 03:04 Labs: Short CBC 09/05/18 Range/Units 04:00 Hgb 9.3 L (11.5-15.4) g/dL Hct 27.2 L (35.3-44.9) % - ABG Interpretation ABG results: PT/INR, D-dimer PT 12.6 Seconds (9.4-12.1) H 09/01/18 03:09 - Impressions Impressions Fluoroscopy 09/04/18 00:00 IMPRESSION: Intraoperative imaging provided during left femoral ORIF. Please see operative report for further details. D/ / Leon De La Garza / Leon De La Garza Interpreting Provider: Leon De La Garza - Attending Attestation I examined this patient and my medical decision-making was reviewed with the Resident Physician. I agree with the documented findings, disposition and treatment plan as described except to the extent set forth below. <Sher Roberts - Last Filed: 09/05/18 18:00> (1) Closed fracture of left distal femur Qualifiers: Encounter type: initial encounter Fracture morphology: unspecified fracture morphology Qualified Code(s): S72.402A - Unspecified fracture of lower end of left femur, initial encounter for closed fracture (2) Breast cancer metastasized to bone Qualifiers: Laterality: left Qualified Code(s): C50.912 - Malignant neoplasm of unspecified site of left female breast; C79.51 - Secondary malignant neoplasm of bone (3) Anemia Qualifiers: Anemia type: other cause Other causes of anemia: antineoplastic chemotherapy Qualified Code(s): D64.81 - Anemia due to antineoplastic chemotherapy; T45.1X5A - Adverse effect of antineoplastic and immunosuppressive drugs, initial encounter (5) Deep vein thrombosis (DVT) of popliteal vein of left lower extremity Qualifiers: Chronicity: chronic Qualified Code(s): I82.532 - Chronic embolism and thrombosis of left popliteal vein <King Olivier - Last Filed: 09/05/18 23:28> (1) Breast cancer metastasized to bone Qualifiers: Laterality: left Qualified Code(s): C50.912 - Malignant neoplasm of unspecified site of left female breast; C79.51 - Secondary malignant neoplasm of bone (2) Anemia Qualifiers: Anemia type: other cause Other causes of anemia: antineoplastic chemotherapy Qualified Code(s): D64.81 - Anemia due to antineoplastic chemotherapy; T45.1X5A - Adverse effect of antineoplastic and immunosuppressive drugs, initial encounter (4) Closed fracture of left distal femur Qualifiers: Encounter type: initial encounter Fracture morphology: unspecified fracture morphology Qualified Code(s): S72.402A - Unspecified fracture of lower end of left femur, initial encounter for closed fracture (5) Deep vein thrombosis (DVT) of popliteal vein of left lower extremity Qualifiers: Chronicity: chronic Qualified Code(s): I82.532 - Chronic embolism and thrombosis of left popliteal vein
[2018-09-06] MEDS: OXYCODONE Oral CONC 10 MG/0.5 ML ORAL.SYG SL PRN ×2 (03:15→10:17)
[2018-09-06 05:17] LABS: Eosinophils % 0.8 %; Mean Corpuscular Hemoglobin 34.4 pg (28.0-33.3); Red Cell Distribution Width 18.9 % (11.5-14.5)
[2018-09-06 05:19] LABS: Hematocrit 24.9 % (35.3-44.9); Hemoglobin 8.5 g/dL (11.5-15.4); Lymphocytes # 0.3 K/mcL (0.6-4.6); Lymphocytes % 24.8 %; Mean Corpuscular HGB Conc 34.1 g/dL (31.6-35.5); Mean Corpuscular Volume 100.8 fL (83.0-100.0); Mean Platelet Volume 11.1 fL (9.4-12.4); Monocytes # 0.2 K/mcL (0.0-1.3); Neutrophils # 0.7 K/mcL (1.6-8.9); Platelet Count 121 K/mcL (140-400); Red Blood Count 2.47 M/mcL (3.82-4.97); Segmented Neutrophils % 55.4 %
[2018-09-06 05:58] LABS: Anisocytosis 1+ (Not Present); Platelet Estimate Normal (Normal); Polychromasia 1+ (Not Present)
[2018-09-06] MEDS ORDERED: Furosemide 20 MG/2 ML VIAL IVP ONE (06:27)
[2018-09-06] MEDS ORDERED: PALBOCICLIB 100 MG PO SCH (09:00)
[2018-09-06] MEDS: Multivit/Ca/Min/Fe/FA 1 TAB TABLET PO SCH (09:43)
[2018-09-06] MEDS: Aspirin Enteric Coated 81 MG Tablet PO SCH (09:43)
--- NOTE | 2018-09-06 10:55 | Orthopedics Progress Note ---
Date of Encounter: 09/06/18 Time of Encounter: 10:55 - Assessment and Plan (1) Acute blood loss anemia Current Visit: Yes Status: Acute Subjective Principal diagnosis: left distal femur fracture Interval history: Patient was seen this morning doing well without complaints. Afebrile vital signs stable. Operative extremity: Neurovascularly intact Dressing clean dry and intact Calves nontender Assessment and plan: Continue with postoperative care Nonweightbearing left lower extremity, no knee range of motion hematocrit 24.9 discharged when cleared by medical team Objective Vital signs: Vital Signs Temp Pulse Resp BP Pulse Ox 09/06/18 10:34 98.1 F 82 16 125/79 95 09/06/18 06:41 98 F 83 16 134/56 96 09/06/18 05:31 98.2 F 109 18 142/73 94 09/05/18 23:13 97.7 F 66 16 126/78 94 09/05/18 19:32 97.6 F 69 16 108/70 100 09/05/18 15:25 97.8 F 69 14 118/74 100 Intake and Output 09/05/18 09/06/18 09/06/18 23:59 07:59 15:59 Intake Total 200 / 200 50 / 50 Output Total 800 / 800 Balance -600 / -600 50 / 50 Intake: IV Fluids 50 / 50 Cleocin Premix 900 MG/50 ML 900 50 / 50 mg In 50 ml @ 50 mls/hr IVPB Q8HR [facility] Rx#:[id number] Oral 200 / 200 Output: Catheter 800 / 800 Other: Weight 84.7 kg Patient Weight 09/06/18 23:59 Weight 84.7 kg - Labs CBC & BMP: 09/06/18 04:02 09/04/18 03:04 Labs: Abnormal lab results WBC 1.2 K/mcL (4.3-11.1) L 09/06/18 04:02 RBC 2.47 M/mcL (3.82-4.97) L 09/06/18 04:02 Hgb 8.5 g/dL (11.5-15.4) L 09/06/18 04:02 Hct 24.9 % (35.3-44.9) L 09/06/18 04:02 MCV 100.8 fL (83.0-100.0) H 09/06/18 04:02 MCH 34.4 pg (28.0-33.3) H 09/06/18 04:02 RDW 18.9 % (11.5-14.5) H 09/06/18 04:02 Plt Count 121 K/mcL (140-400) L D 09/06/18 04:02 Neutrophils # 0.7 K/mcL (1.6-8.9) L 09/06/18 04:02 Lymphocytes # 0.3 K/mcL (0.6-4.6) L 09/06/18 04:02 Nucleated RBCs/100 WBC 3.5 /100 WBC (0) H 09/03/18 04:30 Reactive Lymphocytes Present (Not Present) A 09/04/18 03:04 Polychromasia 1+ (Not Present) A 09/06/18 04:02 Anisocytosis 1+ (Not Present) A 09/06/18 04:02 PT 12.6 Seconds (9.4-12.1) H 09/01/18 03:09 APTT 134.3 Seconds (26.0-36.0) H* 09/01/18 03:09 Sodium 135 mEq/L (136-145) L 09/04/18 03:04 Glucose 120 mg/dL (70-105) H 09/04/18 03:04 Calcium 8.4 mg/dL (8.6-10.3) L 09/04/18 03:04 - VTE Documentation of Mechanical Device: Intermittent pneumatic compression device Consult Discharge Plan - Plan Referrals: Deja Nettles, FILM VAULT SUPERVISOR [Primary Care Provider] -
--- NOTE | 2018-09-06 12:12 | Event Note ---
Date of Encounter: 09/06/18 Time of Encounter: 13:15 Date of procedure: 09/04/18 Pre-op diagnosis: Displaced comminuted left distal femur fracture Post-op diagnosis: same Procedure: Left distal femur open reduction internal fixation Patient seen at bedside. Upon entering room patient found to be 2+ assist back to bed from bathroom. Patient having difficulty not bearing weight to LLE. Patient had near fall even with assistance to bed - this provider along with additional nurse assisted both associate professor of criminal justice to patient back to bed. A&Ox3 Dressing and incision c/d/i No calf tenderness, erythema, or warmth. Neurovascularly intact b/l LE. Labwork and medications reviewed. Pain control: Adequate Participating in PT. All questions and concerns addressed. Educated on use of incentive spirometer, ambulation, and hydration. Patient educated on post-operative restrictions and care. Addressed: Weakness and difficulty with ambulation - requested nursing place bedside commode and bed alarm to encouraged assistance with any transfers. TROM BRACE - LOCKED EXTENSION. NO KNEE MOTION. NONWEIGHTBEARING TO LLE BRACING SPECIALIST IN ROOM - ADJUSTED BRACE - APPLIED BONE STIMULATOR - 3 HOURS DAILY AT SAME TIME EACH DAY. CONTINUE USE UNTIL DIRECTED BY [facility] PROVIDERS. Patient with worsening leukopenia - on neutropenic precautions. Apparently patient took medication after this provider left room. Daughter delivered medication to room while this provider was in room yesterday and this provider instructed patient to hold medication and hit alarm button. Nursing and staff was immediately notified of need for cataloging medication. Per record, when nurse arrived to room short while later - one of her 21 pills was missing which patient stated she took prior to nurse arriving to room. D/C plan: ECF once approved and medically stable per hospitalist discretion. Short CBC 09/06/18 Range/Units 04:02 WBC 1.2 L (4.3-11.1) K/mcL Hgb 8.5 L (11.5-15.4) g/dL Hct 24.9 L (35.3-44.9) % Plt Count 121 L D (140-400) K/mcL Neutrophils # 0.7 L (1.6-8.9) K/mcL Vital Signs Temp Pulse Resp BP Pulse Ox 09/06/18 10:34 98.1 F 82 16 125/79 95 09/06/18 06:41 98 F 83 16 134/56 96 09/06/18 05:31 98.2 F 109 18 142/73 94 09/05/18 23:13 97.7 F 66 16 126/78 94 09/05/18 19:32 97.6 F 69 16 108/70 100 09/05/18 15:25 97.8 F 69 14 118/74 100 Intake and Output 09/05/18 09/06/18 09/06/18 23:59 07:59 15:59 Intake Total 200 / 200 50 / 50 Output Total 800 / 800 Balance -600 / -600 50 / 50 Intake: IV Fluids 50 / 50 Cleocin Premix 900 MG/50 ML 900 50 / 50 mg In 50 ml @ 50 mls/hr IVPB Q8HR [facility] Rx#:[id number] Oral 200 / 200 Output: Catheter 800 / 800 Other: Weight 84.7 kg Patient Weight 09/06/18 23:59 Weight 84.7 kg
--- NOTE | 2018-09-06 12:12 | Physician Discharge Referral ---
ExtendedCare Referral Info Transfer To: [facility] - Diagnosis (1) Closed fracture of left distal femur Priority: Primary Status: Acute (2) Fall Priority: Secondary Status: Acute (3) History of left hip replacement Priority: Primary Status: Chronic - Transfer Medications Prescriptions: OxyCODONE/APAP 7.5/325 [Percocet 7.5/325 MG] 1 each PO Q6HR PRN 2 Days #8 tablet PRN Reason: Pain Aspirin Enteric Coated [Aspirin EC] 325 mg PO BID 10 Days #20 tablet. Polyethylene Glycol 3350 [MiraLAX] 17 gm PO DAILY 5 Days #5 powd.pack Home Medications: Carvedilol [Coreg] 6.25 mg PO BIDWM 02/26/15 [History] Dabigatran Etexilate Mesylate [Pradaxa] 110 mg PO BID #180 capsule 05/16/18 [Rx] Cyanocobalamin (B-12) [Vitamin B12] 1,000 mcg IM QMONTH #12 vial 07/26/18 [Rx] Losartan Potassium 50 mg PO DAILY 09/02/18 [History] Multivitamin [Daily Multiple Vitamin] 1 tab PO DAILY 09/02/18 [History] Aspirin Enteric Coated [Aspirin EC] 325 mg PO BID 10 Days #20 tablet. 09/06/18 [Rx] OxyCODONE/APAP 7.5/325 [Percocet 7.5/325 MG] 1 each PO Q6HR PRN 2 Days #8 tablet 09/06/18 [Rx] Polyethylene Glycol 3350 [MiraLAX] 17 gm PO DAILY 5 Days #5 powd.pack 09/06/18 [Rx] Allergies/Adverse Reactions: Allergy/AdvReac Type Severity Reaction Status Date / Time Penicillins [PCN] Allergy Swelling Verified 09/02/18 14:33 of Lip/Tongue/Throat Sulfa (Sulfonamide Allergy Rash Verified 09/02/18 14:33 Antibiotics) - Respiratory Orders Smoking Cessation: Smoking cessation has been advised. For more information, call the [employer] Quit Line at 2-430-CKIN-NOW. - Ancillary Orders May use pressure relief devices daily prn, May go on RAMSEY w/family/respon alliance party w/meds at nurse discretion PRN, May consult with Dentist, Transmissions Systems Operator, Rubber And Plastics Worker PRN - Mobility Orders Chair, Ambulate (NONWEIGHTBEARING TO OPERATIVE EXTREMITY) - Rehabiliation Orders Rehab Potential: Fair Rehab Orders: Evaluation for Physical Therapy, Evaluation for Occupational Therapy Other: Apply cold therapy wrap 3-6x/day for 20 minutes at a time. Encourage ambulation throughout the day and incentive spirometer 10x/hour. Elevate affected extremity above heart as tolerated. NONWEIGHTBEARING left lower extremity, NO knee range of motion - LOCKED EXT ENSION TROM BRACE AT ALL TIMES. WHEELS SHOULD BE AT EITHER SIDE OF KNEE JOINT. ADJUST STRAPS FOR SNUG FIT. MONITOR FOR SKIN BREAKDOWN FREQUENTLY. REMOVE FOR HYGIENE ONLY. BONE STIMULATOR - apply over surgical area 3 HOURS DAILY starting AT SAME TIME EACH DAY. CONTINUE USE UNTIL DIRECTED BY [facility] PROVIDERS. - Treatments Skin tear care topically daily PRN per policy List/Other: Opsite placed. Keep dressing intact until first follow up appointment. If greater than 50% saturated, notify office, remove dressing and place appropriate dressing back in place. Leave Zipline intact. Opsite dressing is water resistant, not water-proof. OK to shower, but do not get dressing wet. - Diet Orders Regular CERTIFICATION: I certify that the transfer of the above named patient to an Extended Care Facility is necessary for the continuing treatment of the diagnosis listed. The above information is true and accurate reflection of patient's current condition. Confidential - Redisclosure prohibited without a patient's written consent.
--- NOTE | 2018-09-06 13:11 | Discharge Summary ---
- NOTES TO OUTPATIENT PROVIDER Notes to Outpatient Provider: Ms. Sinha was admitted and treated for left distal femur fracture secondary to mechanical fall. ORIF was performed on 09/04/18 without complication. Patient was held several more days for recovery and PT/OT evaluation. She recovered well clinically and was recommended to discharge to ECF. We will discharge on home medications and oral pain control per orthopedic recommendations. He patient has history of breast cancer with metastases and follows with at [facility]. Patient was scheduled to begin chemotherapy drug Ibrance regimen, however based on patient's pancytopenia hematology/oncology recommended holding chemotherapy until her follow-up appointment scheduled in 2 weeks. Patient would also likely benefit from repeat CBC in 3 days. Orders not resulted at time of discharge: Pending orders 09/04/18 XR femur LT [XR] Routine 09/06/18 12:10 Red Blood Cells [BBK] Stat Type and Screen [BBK] Stat Date of Encounter: 09/06/18 Time of Encounter: 13:00 - Discharge Diagnosis (1) Closed fracture of left distal femur Priority: Primary Status: Acute Assessment and Plan: Patient presented for left lower extremity pain after a mechanical fall, POD 2 Imaging revealed a severely comminuted distal left femur fracture She does have a history of pathologic fractures secondary to bony metastases from primary breast cancer She underwent ORIF with Dr. Beach Tuesday and is recovering appropriately without complication thus far Qualifiers: Encounter type: initial encounter Fracture morphology: unspecified fracture morphology Qualified Code(s): S72.402A - Unspecified fracture of lower end of left femur, initial encounter for closed fracture (2) Breast cancer metastasized to bone Priority: Secondary Status: Chronic Assessment and Plan: Patient was scheduled to repeat chemotherapy regimen starting yesterday Ibrance was held due to pancytopenia, Heme/Onc Consulted Heme/Onc confirmed that Ibrance should be held until her follow up with them in 2 weeks Qualifiers: Laterality: left Qualified Code(s): C50.912 - Malignant neoplasm of unspecified site of left female breast; C79.51 - Secondary malignant neoplasm of bone (3) Anemia Priority: Secondary Status: Chronic Assessment and Plan: Likely from chronic disease related to metastatic disease. Transfused 2U PRBC over the weekend with rise in Hgb to 9.9, however did lose 300mL in surgery. 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 This admission she presented with left lower extremity pain after a mechanical fall at home. Imaging revealed a distal left femur fracture. She was neurovascularly intact on presentation and was admitted for workup. Orthopedics was consulted, and surgery was planned for 09/04/2018. She did receive 2 units PRBCs over the weekend due to anemia. Open reduction internal fixation of the distal left femur was completed by Dr Beach on 09/04/2018 without complication. She recovered well clinically. During her recovery she was noted to be pancytopenic, this was attributed to chemotherapy, anemia of chronic disease, blood loss from surgery. She was also scheduled to begin a chemotherapy regimen during her hospital stay. Hematology and oncology were consulted to determine if the patient should start chemotherapy in her pancytopenic state. They determined that the patient should hold off on chemotherapy until she followed up with them in 2 weeks. The patient was given 1 unit of PRBCs and was considered stable for discharge to rehabilitation at [place]. Discharge discussed with: patient, nurse, bridal consultant - Time Spent with Patient Total time spent providing and/or coordinating discharge services: - Discharge Medications Prescriptions: New Aspirin Enteric Coated [Aspirin EC] 325 mg PO BID 10 Days #20 tablet. OxyCODONE/APAP 7.5/325 [Percocet 7.5/325 MG] 1 each PO Q6HR PRN 2 Days #8 tablet PRN Reason: Pain Polyethylene Glycol 3350 [MiraLAX] 17 gm PO DAILY 5 Days #5 powd.pack Continue Carvedilol [Coreg] 6.25 mg PO BIDWM Dabigatran Etexilate Mesylate [Pradaxa] 110 mg PO BID #180 capsule Cyanocobalamin (B-12) [Vitamin B12] 1,000 mcg IM QMONTH #12 vial Multivitamin [Daily Multiple Vitamin] 1 tab PO DAILY Losartan Potassium 50 mg PO DAILY Discontinued Aspirin [Lo-Dose Aspirin EC] 81 mg PO DAILY Palbociclib [Ibrance] 100 mg PO DAILY #21 capsule Home Medications: Carvedilol [Coreg] 6.25 mg PO BIDWM 02/26/15 [History] Dabigatran Etexilate Mesylate [Pradaxa] 110 mg PO BID #180 capsule 05/16/18 [Rx] Cyanocobalamin (B-12) [Vitamin B12] 1,000 mcg IM QMONTH #12 vial 07/26/18 [Rx] Losartan Potassium 50 mg PO DAILY 09/02/18 [History] Multivitamin [Daily Multiple Vitamin] 1 tab PO DAILY 09/02/18 [History] Aspirin Enteric Coated [Aspirin EC] 325 mg PO BID 10 Days #20 tablet. 09/06/18 [Rx] OxyCODONE/APAP 7.5/325 [Percocet 7.5/325 MG] 1 each PO Q6HR PRN 2 Days #8 tablet 09/06/18 [Rx] Polyethylene Glycol 3350 [MiraLAX] 17 gm PO DAILY 5 Days #5 powd.pack 09/06/18 [Rx] Allergies/Adverse Reactions: Allergy/AdvReac Type Severity Reaction Status Date / Time Penicillins [PCN] Allergy Swelling Verified 09/02/18 14:33 of Lip/Tongue/Throat Sulfa (Sulfonamide Allergy Rash Verified 09/02/18 14:33 Antibiotics) Date of admission: 09/01/18 04:33 Primary care physician: Deja Nettles CNP Consults: 09/01/18 04:18 Consult to Orthopedic Surgery [CONS] Stat Consulting Provider: Orthopedics [facility] Reason for Consult: distal femur fracture Call Completed: No 09/04/18 20:41 Consult to Occupational Therapy [CONS] Routine Comment: Evaluate, develop and implement POC Reason for Consult: Postop Does patient have active BEDREST order?: No Is patient medically & hemodynamically stable?: Yes Patient assessed for mobility or mobilized this visit?: Yes Consult to Orthopedic Navigator [CONS] [CONS] Routine Consult to Physical Therapy [CONS] Routine Comment: Evaluate, develop and implement POC Reason for Consult: postop Does patient have active BEDREST order?: No Is patient medically & hemodynamically stable?: Yes Patient assessed for mobility or mobilized this visit?: Yes Consult to Conductor Sleeping Car [CONS] Routine Reason for SW Consult: dc planning RT Post Op Consult [CONS] Routine 09/06/18 06:43 Consult to Oncology Hematology [CONS] Routine Consulting Provider: Tahira Jiménez Reason for Consult: leukopenia in [facility] patient Call Completed: No Discharging clinician: Jose D Cartagena Anticipated date of discharge: 09/06/18 - Constitutional Vitals: Temp Pulse Resp BP Pulse Ox 98.1 F 82 16 125/79 95 09/06/18 10:34 09/06/18 10:34 09/06/18 10:34 09/06/18 10:34 09/06/18 10:34 Exam: General: Well developed white female lying comfortably in bed in no acute distress. Skin: Pale, warm and supple. HEENT: Moist mucous membranes. Neck: Chemo port noted in right jugular. Chest: Normal thoracic expansion. Normal breath sounds. Clear to auscultation. Heart: Normal S1 & S2; rhythmic. No rubs or murmurs. Abdomen: Non-distended, soft and non-tender to palpation. No peritoneal reaction. Extremities: Left leg wrapped and splinted post-op. Distal PMS intact Neurological: Awake, alert and oriented to person, place and time. No focal deficits. - Patient Status Disposition: Transfer Inpatient Rehab Fac Condition: Fair Functional capacity at discharge: wheelchair bound Overall status at discharge: patient is not back to baseline - Discharge Instructions Follow Up With: Geneva Toledo PAC [Physician Build Master] - Isaias Franco MD [Partnered Physician] - 09/20/18 1:30 pm Deja Nettles CNP [Primary Care Provider] - Additional Instructions: Discharge Instructions: Please call [facility] ([phone]), your Primary Care Physician, or report to the Emergency Room if you have any of the following symptoms: Nausea, vomiting, fever greater that 101.5, swelling, chest pain, shortness of breath, increased pain/redness/drainage/odor for your incision site, numbness/tingling, or any other concerning symptoms. ACTIVITY: Non-weight bearing to operative extremity. Keep hinged brace on at all times. Protect incision with ABD pad between opsite and hinged brace. Incentive Spirometer 10 times an hour. MEDICATIONS: Upon discharge resume your home medications. Take all the medications as prescribed. Take a stool softener if taking narcotic pain medications. Stool softeners are only effective if you drink enough fluids. Drink 6-8 glass of water or fluids a day, unless this is not allowed for another health problem. Despite using stool softeners, if you haven't had a bowel movement in 3 days, please switch to a gentle laxative. Gentle laxatives are sold over the counter. You should have a bowel movement within 24 hours, if not call the office. You will be discharged from the hospital with a prescription for pain medication. You are encouraged to decrease the use of narcotic pain medication as tolerated. Should you require a refill, please call the office. [facility] prescribes narcotic pain medication for only 4-6 weeks after surgery. If you require pain medication beyond this time period, you may be referred to your Primary Care Physician or to the Pain Clinic for further evaluation. Plan ahead for refills on pain medication as many narcotics either need to be picked up at the office or mailed. It is best to call 48-72 hours in advance of needing a prescription refill so you don't run out of medication. To help control the post-operative pain, you may take NSAIDs (Aleve,Advil, Motrin, ibuprofen, naprosyn) or Tylenol as prescribed on the bottle in addition to the pain medication. ANTICOAGULATION (blood thinners): Continue your Aspirin, Lovenox or Coumadin as prescribed to help prevent a blood clot in the leg or in the lungs. As long as your incision remains dry and you tolerate the NSAIDs (Aleve, Advil, Motrin, Ibuprofen, Naprosyn), it is OK to use the NSAIDS while you are taking your anticoagulation medication. Should your incision start to drain, stop the NSAID and contact our office. Common symptoms of blood clot in the legs include: localized pain, swelling, calf tenderness, redness or discoloration of the skin. Blood clot in the lung symptoms include: shortness of breath, rapid pulse, sweating, and chest pain that worsens with deep breathing, coughing up blood, lightheadedness, feelings of anxiety. If you experience any of these symptoms notify your physician immediately, go to the emergency room, or if having trouble breathing, call 911. WOUND CARE: Leave the dressing on for 7 to 10days. You may change the dressing if it is saturated greater than 50%. Do not get the dressing wet at anytime. Wash your hands with antibacterial soap, rinse and dry prior to any wound care. If you have jaime the visiting nurse or rehab facility can remove the stapes 10-14 days after surgery and place steri-strips across the wound. Leave the steri-strips in place until they fall off on their own. You may let water from t he shower run on top of the steri-strips. If you do not have a visiting nurse or rehab facility, you will need to return to the office at 10-14 days for the jaime to be removed. If you have itching or redness around the dressing call the office. FOLLOW-UP: Please follow up with your surgeon in the orthopedic clinic in 6 weeks from the day of surgery. If you have jaime that need to be removed, you will need to come back to the office in 10-14 days from the day of surgery. - Diet and Activity Activity: as per physical therapy Diet: advance to your usual diet - VTE Documentation of Mechanical Device: Intermittent pneumatic compression device
[2018-09-06] MEDS ORDERED: 0.9 % Sodium Chloride 250 ML ONE (13:51)
--- NOTE | 2018-09-06 16:16 | Oncology Inp Consult Note ---
<TinoTahira Florence - Last Filed: 09/06/18 16:16> Date of Encounter: 09/06/18 - Data of Consult Requesting Physician: King Olivier MD Primary Care Provider: Deja Nettles CNP Past Med Surg Social Fam HX - Past Medical History Medical history: cancer, hyperlipidemia, hypertension, other Additional medical history: DVT Psychiatric history: no psych history - Past Surgical History Surgical History: appendectomy, breast surgery, cholecystectomy Additional surgical history: 11/01/17 cervical 4-5 discectomy. anterior cervical w/fusion with cervical six corpectomy. lumpectomy left breast - Social History Smoking Status: Never smoker Smokeless Tobacco Status: No Alcohol use: none Drug use: none Medications and Allergies Carvedilol [Coreg] 6.25 mg PO BIDWM 02/26/15 [History] Dabigatran Etexilate Mesylate [Pradaxa] 110 mg PO BID #180 capsule 05/16/18 [Rx] Cyanocobalamin (B-12) [Vitamin B12] 1,000 mcg IM QMONTH #12 vial 07/26/18 [Rx] Losartan Potassium 50 mg PO DAILY 09/02/18 [History] Multivitamin [Daily Multiple Vitamin] 1 tab PO DAILY 09/02/18 [History] Aspirin Enteric Coated [Aspirin EC] 325 mg PO BID 10 Days #20 tablet.dr 09/06/18 [Rx] OxyCODONE/APAP 7.5/325 [Percocet 7.5/325 MG] 1 each PO Q6HR PRN 2 Days #8 tablet 09/06/18 [Rx] Polyethylene Glycol 3350 [MiraLAX] 17 gm PO DAILY 5 Days #5 powd.pack 09/06/18 [Rx] Allergy/AdvReac Type Severity Reaction Status Date / Time Penicillins [PCN] Allergy Swelling Verified 09/02/18 14:33 of Lip/Tongue/Throat Sulfa (Sulfonamide Allergy Rash Verified 09/02/18 14:33 Antibiotics) Consult Discharge Plan - Plan Additional Instructions: Discharge Instructions: Please call [facility] ([phone]), your Primary Care Physician, or report to the Emergency Room if you have any of the following symptoms: Nausea, vomiting, fever greater that 101.5, swelling, chest pain, shortness of breath, increased pain/redness/drainage/odor for your incision site, numbness/tingling, or any other concerning symptoms. ACTIVITY: Non-weight bearing to operative extremity. Keep hinged brace on at all times. Protect incision with ABD pad between opsite and hinged brace. Incentive Spirometer 10 times an hour. MEDICATIONS: Upon discharge resume your home medications. Take all the medications as prescribed. Take a stool softener if taking narcotic pain medications. Stool softeners are only effective if you drink enough fluids. Drink 6-8 glass of water or fluids a day, unless this is not allowed for another health problem. Despite using stool softeners, if you haven't had a bowel movement in 3 days, please switch to a gentle laxative. Gentle laxatives are sold over the counter. You should have a bowel movement within 24 hours, if not call the office. You will be discharged from the hospital with a prescription for pain medication. You are encouraged to decrease the use of narcotic pain medication as tolerated. Should you require a refill, please call the office. [facility] prescribes narcotic pain medication for only 4-6 weeks after surgery. If you require pain medication beyond this time period, you may be referred to your Primary Care Physician or to the Pain Clinic for further evaluation. Plan ahead for refills on pain medication as many narcotics either need to be picked up at the office or mailed. It is best to call 48-72 hours in advance of needing a prescription refill so you don't run out of medication. To help control the post-operative pain, you may take NSAIDs (Aleve,Advil, Motrin, ibuprofen, naprosyn) or Tylenol as prescribed on the bottle in addition to the pain medication. ANTICOAGULATION (blood thinners): Continue your Aspirin, Lovenox or Coumadin as prescribed to help prevent a blood clot in the leg or in the lungs. As long as your incision remains dry and you tolerate the NSAIDs (Aleve, Advil, Motrin, Ibuprofen, Naprosyn), it is OK to use the NSAIDS while you are taking your anticoagulation medication. Should your incision start to drain, stop the NSAID and contact our office. Common symptoms of blood clot in the legs include: localized pain, swelling, calf tenderness, redness or discoloration of the skin. Blood clot in the lung symptoms include: shortness of breath, rapid pulse, sweating, and chest pain that worsens with deep breathing, coughing up blood, lightheadedness, feelings of anxiety. If you experience any of these symptoms notify your physician immediately, go to the emergency room, or if having trouble breathing, call 911. WOUND CARE: Leave the dressing on for 7 to 10days. You may change the dressing if it is saturated greater than 50%. Do not get the dressing wet at anytime. Wash your hands with antibacterial soap, rinse and dry prior to any wound care. If you have jaime the visiting nurse or rehab facility can remove the stapes 10-14 days after surgery and place steri-strips across the wound. Leave the steri-strips in place until they fall off on their own. You may let water from the shower run on top of the steri-strips. If you do not have a visiting nurse or rehab facility, you will need to return to the office at 10-14 days for the jaime to be removed. If you have itching or redness around the dressing call the office. FOLLOW-UP: Please follow up with your surgeon in the orthopedic clinic in 6 weeks from the day of surgery. If you have jaime that need to be removed, you will need to come back to the office in 10-14 days from the day of surgery. Referrals: Geneva Toledo PAC [Physician Medical Detail Representative] - Isaias Franco MD [Partnered Physician] - 09/20/18 1:30 pm Deja Nettles CNP [Primary Care Provider] - Prescriptions: OxyCODONE/APAP 7.5/325 [Percocet 7.5/325 MG] 1 each PO Q6HR PRN 2 Days #8 tablet PRN Reason: Pain Aspirin Enteric Coated [Aspirin EC] 325 mg PO BID 10 Days #20 tablet. Polyethylene Glycol 3350 [MiraLAX] 17 gm PO DAILY 5 Days #5 powd.pack <Isaias Franco - Last Filed: 09/06/18 16:51> Date of Encounter: 09/06/18 Time of Encounter: 16:46 - Data of Consult Requesting Physician: King Olivier MD Primary Care Provider: Deja Nettles CNP Inpatient Charges Provider: Dr. Laquita Franco Consult - Inpatient: [id number] - Attending Attestation I examined this patient and my medical decision-making was reviewed with the Advanced Practice Nurse Tahira russo. I agree with the documented findings, d isposition and treatment plan as described except to the extent set forth below. 1. Hospitalized after mechanical fall. Left distal femur fracture portals followed by [facility]. According to orthopedics did not see any pathological lesion. No specimens collected. At this time I will restage her as an outpatient with CT scans and bone scan. If there is evidence of disease progression would change treatment. The fracture could have been just is a result of mechanical fall rather than pathological fracture We will also repeat CA 27-29 2. Metastatic breast cancer currently on Palbociclib and Faslodex. She is neutropenic with neutrophil count 700. Recommend to hold Palbociclib till follow-up visit in the office in about 2 weeks. 3. Symptomatic anemia hemoglobin 8.5. I agree with packed RBC transfusion 4. Metastatic breast cancer with multiple bone metastasis. Total hip replacement left side for impending fracture on 12-26-13 and pathology showed ER [place] 99% HER-2 negative metastatic breast cancer She had excellent response to single agent letrozole for several years Progression of metastatic disease She had surgical excision of C6 metastasis 11/01/2017 consistent with breast primary 2000 cGy in 5 fractions of 400 cGy each to the cervical spine operative bed on January 2018 Second line treatment Palbociclib 100 mg by mouth day one through 21 off 28 day cycle Faslodex 500 mg IM every 4 weeks after loading dose Cycle 1 on 01/07/19. She will get a dose of Faslodex today. Okay for treatment 03/29/18 Ct scan chest, abdomen and pelvis-indicated scattered sclerotic and lytic bony lesions which are stable. No evidence of intrathoracic or abdominal /pelvic metastatic disease. 03/31/18 bone scan was also stable and no new lesions. Her CA 27.29 has improved most recent value 138 on 07/26/2018 compared to 222 on January 2018 Supportive treatment for bone metastasis Zometa since 11/06/2015. Currently every 3 months IV. She will get a dose on 08/23/2018
[2018-09-06 17:28] VITALS: BP 145/75
== END 2018-09-06 19:01 | DRG 480 ==
LOC: 3NENU 00:42 → EMEROOARM 00:42 → 3NENU 04:30 → SUATTDRO 04:33
PROVIDERS: ADMIT Internal Medicine; ATTEND Student in an Organized Health Care Education/Training Program